=== PATIENT | male | born 1940 | race Caucasian/White ===

== ENCOUNTER 2025-05-16 15:09 | Emergency (ER) | payer MEDICARE, SELFPAY ==
--- OUTSIDE RECORDS SUMMARY | 2025-04-07 07:29 | XMS_ITS | Continuity of Care Document ---
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 Name Role Phone SUNITHA GUZMAN Primary Attending SUNITHA GUZMAN Unavailable SUNITHA GUZMAN Admitting TOO CHILD Primary Care ALLERGIES AND ADVERSE REACTIONS ALLERGIES AND ADVERSE REACTIONS Code System Allergy Substance Adverse Reaction Date Reaction (Severity) Comment Status Reported By Updated By 1197 RXNorm ASPIRIN Adverse reaction to substance (Moderate) has had ulcers active [id number] on April 03, 2025 12:10:06 PM UT ASSESSMENTS Chronic obstructive pulmonary disease ; FAMILY HISTORY RELATION: Father Status: Cause of : Coronary arteriosclerosis Age at : 70 SNOMED-CT Diagnosis Age At Onset Information not available RELATION: Mother Status: Cause of : Disorder of lung Age at : 96 SNOMED-CT Diagnosis Age At Onset [id number] Disorder of lung PROBLEMS PATIENT PROBLEMS Code Description/Comments Category Status Upda w[place] By [id number] Chronic obstructive pulmonary disease active [id number] on April 03, 2025 3:17:34 AM UT RESULTS Patient: TRISTIAN Barraza Date of : 1940 LABORATORY RESULTS ORDER 100: B-TYPE NATRIURETI C PEPTIDE BNP (LOINC: 96776-9) ORDER DATE: April 03, 2025 12:58:00 AM UTC Specimen Source: Whole Blood Specimen Type: Whole blood s ample PERFORMING LAB: [address] [id number] Result Comment: Final Result Date: April 03, 2025 1:46:00 AM UT (TECH: HC) LOINC TEST FLAG [place] [address]-5 Natriuretic peptide B [Mass/volume] in Serum or Plasma H 139.0 pg/mL 0.0 pg/mL - 100 pg/mL April 03, 2025 1:46:00 AM UTC (TECH: [employer]) ORDER 200: CBC AUTO W DIFF ( LOINC: 83185-8) ORDER DATE: April 03, 2025 12:58:00 AM UTC Specimen Source: Whole Blood Specimen Type: Whole blood s ample PERFORMING LAB: [address] [id number] Result Comment: Final Result Date: April 03, 2025 1:22:00 AM UTC (TECH: [employer]) LOINC TEST FLAG RESULT REFERENCE RANGE UPDA WESLEY BY 6690-2 Leukocytes [#/volume] in Blood by Automated count N 5.7 10^3/uL 4.5 10^3/uL - 11.5 10^3/uL April 03, 2025 1:22:00 AM UTC (TECH: [employer]) 789-8 Erythrocytes [#/volume] in Blood by Automated count L 4.06 10^6/uL 4.25 10^6/uL - 5.57 10^6/uL April 03, 2025 1:22:00 AM UTC (1spire: [employer]) 718-7 Hemoglobin [Mass/volume] in Blood L 12.6 g/dL 13.5 g/dL - 17.2 g/dL April 03, 2025 1:22:00 AM UTC (1spire: [employer]) 50081-1 Hematocrit [Volume Fraction] of Blood L 38.4 % 42.0 % - 52.0 % April 03, 2025 1:22:00 AM UTC (TECH: [employer]) 787-2 Erythrocyte mean corpuscular volume [Entitic volume] by Automated count N 94.6 fl 80 fl - 95 fl April 03, 2025 1:22:00 AM UTC (1spire: [employer]) 83939-2 Erythrocyte mean corpuscular hemoglobin [Entitic mass] in Blood from Fetus by Automated count N 31.0 pg 27.0 pg - 34.0 pg April 03, 2025 1:22:00 AM UTC (1spire: [employer]) 62835-1 Erythrocyte mean corpuscular hemoglobin concentration [Mass/volume] in Blood from Fetus by Automated count N 32.8 g/dL 32.0 g/dL - 36.0 g/dL April 03, 2025 1:22:00 AM UTC (TECH: [employer]) 76952-7 Platelets [#/volume] in Blood N 275 10^3/uL 150 10^3/uL - 450 10^3/uL April 03, 2025 1:22:00 AM UTC (TECH: [employer]) 31848-3 Erythrocyte distribution width [Ratio] H 16.1 % 12.3 % - 15.1 % April 03, 2025 1:22:00 AM UTC (TECH: HC) 95660-2 Platelet mean volume [Entitic volume] in Blood by Automated count N 9.9 fl 7.4 fl - 10.4 fl April 03, 2025 1:22:00 AM UTC (TECH: HC) 60900-8 Granulocytes/100 leukocytes in Blood by Automated count N 68.0 % 40 % - 75 % April 03, 2025 1:22:00 AM UTC (TECH: HC) 736-9 Lymphocytes/100 leukocytes in Blood by Automated count N 15.3 % 15 % - 57 % April 03, 2025 1:22:00 AM UTC (TECH: HC) 5905-5 Monocytes/100 leukocytes in Blood by Automated count H 13.3 % 4.0 % - 12.0 % April 03, 2025 1:22:00 AM UTC (TECH: HC) 713-8 Eosinophils/100 leukocytes in Blood by Automated count N 2.6 % 0.0 % - 4.0 % April 03, 2025 1:22:00 AM UTC (TECH: HC) 706-2 Basophils/100 leukocytes in Blood by Automated count N 0.4 % 0.0 % - 1.0 % April 03, 2025 1:22:00 AM UTC (TECH: [employer]) 61680-0 Immature granulocytes [#/volume] in Blood N 0.4 % 0.0 % - 0.8 % April 03, 2025 1:22:00 AM UTC (TECH: HC) 21185-2 Granulocytes [#/volume] in Blood by Automated count N 3.88 10^3/uL April 03, 2025 1:22:00 AM UTC (TECH: HC) 731-0 Lymphocytes [#/volume] in Blood by Automated count N 0.87 10^3/uL April 03, 2025 1:22:00 AM UTC (TECH: HC) 742-7 Monocytes [#/volume] in Blood by Automated count N 0.76 10^3/uL April 03, 2025 1:22:00 AM [facility] (1spire: [employer]) 711-2 Eosinophils [#/volume] in Blood by Automated count N 0.15 10^3/uL April 03, 2025 1:22:00 AM [facility] ([facility]: [employer]) 704-7 Basophils [#/volume] in Blood by Automated count N 0.02 10^3/uL April 03, 2025 1:22:00 AM [facility] ([facility]spire: [employer]) 95671-3 Immature granulocytes [#/volume] in Blood N 0.02 10^3/uL April 03, 2025 1:22:00 AM [facility] ([facility]sp[facility]: [employer]) 82776-2 Manual differential performed [Presence] in Blood N NO April 03, 2025 1:22:00 AM [facility] ([facility]sp[facility]: [employer]) ORDER 300: CK MB (LOINC: 326 73-6) ORDER DATE: April 03, 2025 12:58:00 AM [facility] Specimen Source: Serum/Plasm a Specimen Type: Acellular blo od (serum or plasma) specimen PERFORMING LAB: [address] [id number] Result Comment: Final Result Date: April 03, 2025 1:48:00 AM [facility] ([facility]spire: [employer]) LOINC TEST FLAG RESULT [place] [address]-7 Creatine kinase.MB [Enzymatic activity/volume] in Serum or Plasma N 0.5 ng/mL 0.0 ng/mL - 3.6 ng/mL April 03, 2025 1:48:00 AM [facility] ([facility]: [employer]) ORDER 400: D-DIMER QUANTITAT SHILOH (LOINC: 7799-0) ORDER DATE: April 03, 2025 12:58:00 AM [facility] Specimen Source: Plasma Specimen Type: Plasma specim en PERFORMING LAB: [address] [id number] Result Comment: Final Result Date: April 03, 2025 1:51:00 AM [facility] ([facility]sp[facility]: [employer]) LOINC TEST FLAG RESULT REFERENCE RANGE UPDA WESLEY BY 7799-0 Fibrin D-dimer [Units/volume] in Platelet poor plasma HH 1956 ng/mL 0 ng/mL - 500 ng/mL April 03, 2025 1:51:00 AM UT (TECH: [employer]) ORDER 500: TROPONIN QUANT (L OINC: 05097-0) ORDER DATE: April 03, 2025 12:58:00 AM UT Specimen Source: Serum/Plasm a Specimen Type: Acellular blo od (serum or plasma) specimen PERFORMING LAB: [address] [id number] Result Comment: Final Result Date: April 03, 2025 1:46:00 AM UT (TECH: [employer]) LOINC TEST FLAG RESULT [place] [address]-9 Troponin I.cardiac panel - Serum or Plasma by High sensitivity method N 6 ng/L 0 ng/L - 76 ng/L April 03, 2025 1:46:00 AM UT (TECH: [employer]) ORDER 800: COMP METABOLIC PA MARLENY (LOINC: 08841-1) ORDER DATE: April 03, 2025 1:55:00 AM UT Specimen Source: Serum/Plasm a Specimen Type: Acellular blo od (serum or plasma) specimen PERFORMING LAB: [address] [id number] Result Comment: Final Result Date: April 03, 2025 2:09:00 AM [facility] ([facility]: [employer]) LOINC TEST FLAG RESULT REFERENCE RANGE UPDA WESLEY BY 2951-2 Sodium [Moles/volume ] in Serum or Plasma L 135 mmol/L 136 mmol/L - 145 mmol/L April 03, 2025 2:09:00 AM [facility] ([facility]: [employer]) 2823-3 Potassium [Moles/volume] in Serum or Plasma N 3.7 mmol/L 3.5 mmol/L - 5.1 mmol/L April 03, 2025 2:09:00 AM UT ([facility]spire: [employer]) 2075-0 Chloride [Moles/volu me] in Serum or Plasma N 98 mmol/L 98 mmol/L - 107 mmol/L April 03, 2025 2:09:00 AM UT (1spire: [employer]) 2027-9 Carbon dioxide, tota l [Moles/volume] in Serum or Plasma N 25 mmol/L 21 mmol/L - 32 mmol/L April 03, 2025 2:09:00 AM UT (TECH: [employer]) 32690-8 Anion gap 3 in Serum or Plasma N 12.0 April 03, 2025 2:09:00 AM UT (TECH: [employer]) 2345-7 Glucose [Mass/volume ] in Serum or Plasma N 98 mg/dL 70 mg/dL - 110 mg/dL April 03, 2025 2:09:00 AM [facility] (TECH: [employer]) 3094-0 Urea nitrogen [Mass/volume] in Serum or Plasma N 15 mg/dL 7 mg/dL - 18 mg/dL April 03, 2025 2:09:00 AM [facility] (TECH: ) 2160-0 Creatinine [Mass/volume] in Serum or Plasma N 1.3 mg/dL 0.8 mg/dL - 1.3 mg/dL April 03, 2025 2:09:00 AM [facility] (TECH: ) 3097-3 Urea nitrogen/Creatinine [Mass Ratio] in Serum or Plasma N 11.5 9 - April 03, 2025 2:09:00 AM [facility] ([facility]sp[facility]: [employer]) 06541-5 Glomerular filtratio n rate/1.73 sq M.predicted by Creatinine-based formula (MDRD) L 54 mL/min >60 April 03, 2025 2:09:00 AM [facility] (TECH: [employer]) 91112-3 Osmolality of Serum or Plasma by calculated by sum of electrolytes N 282 mosm/kg 275 mosm/kg - 301 mosm/kg April 03, 2025 2:09:00 AM [facility] ([facility]: [employer]) 2885-2 Protein [Mass/volume ] in Serum or Plasma N 8.1 g/dL 6.4 g/dL - 8.2 g/dL April 03, 2025 2:09:00 AM [facility] (TECH: [employer]) 1751-7 Albumin [Mass/volume ] in Serum or Plasma L 3.3 g/dL 3.4 g/dL - 5.0 g/dL April 03, 2025 2:09:00 AM [facility] (TECH: [employer]) 68714-8 Calcium [Mass/volume ] in Serum or Plasma N 9.1 mg/dL 8.5 mg/dL - 10.1 mg/dL April 03, 2025 2:09:00 AM [facility] ([facility]sp[facility]: [employer]) 39883-0 Calcium [Mass/volume ] corrected for total protein in Serum or Plasma N 9.7 mg/dL 8.5 mg/dL - 10.1 mg/dL April 03, 2025 2:09:00 AM [facility] (TECH: [employer]) 1975-2 Bilirubin.total [Mass/volume] in Serum or Plasma N 0.5 mg/dL 0.4 mg/dL - 1.5 mg/dL April 03, 2025 2:09:00 AM UTC (TECH: [employer]) 1920-8 Aspartate aminotransferase [Enzymatic activity/volume] in Serum or Plasma N 36 U/L 15 U/L - 37 U/L April 03, 2025 2:09:00 AM UTC (TECH: [employer]) 1742-6 Alanine aminotransferase [Enzymatic activity/volume] in Serum or Plasma N 13 U/L 12 U/L - 78 U/L April 03, 2025 2:09:00 AM UTC (TECH: [employer]) 6768-6 Alkaline phosphatase [Enzymatic activity/volume] in Serum or Plasma N 134 U/L April 03, 2025 2:09:00 AM UT (TECH: [employer]) ORDER 1000: UA AND MICRO/CUL T IF INDICATED (LOINC: 80338-5) ORDER DATE: April 03, 2025 2:02:00 AM UT Specimen Source: URINE Specimen Type: Urine specime n PERFORMING LAB: [address] [id number] Result Comment: Final Result Date: April 03, 2025 2:13:00 AM UT (TECH: [employer]) LOINC TEST FLAG RESULT REFERENCE RANGE UPDA WESLEY BY 5778-6 Color of Urine N yellow YELLOW March 192024 2:13:00 AM UT (TECH: [employer]) 5767-9 Appearance of Urine N clear CLEAR April 03, 2025 2:13:00 AM UT (TECH: [employer]) 5792-7 Glucose [Mass/volume] in Urine by Test strip N NORM NORMAL April 03, 2025 2:13:00 AM UT (TECH: [employer]) 46295-6 Bilirubin.total [Mass/volume] in Urine by Automated test strip N NEGATIVE NEGATIVE April 03, 2025 2:13:00 AM UT (TECH: [employer]) 5797-6 Ketones [Mass/volume] in Urine by Test strip N NEGATIVE NEGATIVE April 03, 2025 2:13:00 AM UT (TECH: [employer]) 2965-2 Specific gravity of Urine N 1.005 1.005 - 1.035 April 03, 2025 2:13:00 AM UTC (TECH: [employer]) 15963-6 Erythrocytes [#/volume] in Urine by Automated test strip N NEGATIVE NEGATIVE April 03, 2025 2:13:00 AM UTC (TECH: HC) 01847-5 pH of Urine by Automated test strip N 5.00 5.0 - 7.5 April 03, 2025 2:13:00 AM UTC (TECH: HC) 14496-9 Protein [Presence] in Urine by Test strip N 15 (TRACE) mg/dL NEGATIVE April 03, 2025 2:13:00 AM UTC (TECH: HC) 53532-7 Urobilinogen [Mass/volume] in Urine by Automated test strip N NORM NORMAL April 03, 2025 2:13:00 AM UTC (TECH: HC) 95572-5 Nitrate [Presence] in Urine N NEGATIVE NEGATIVE April 03, 2025 2:13:00 AM UTC (TECH: HC) 26534-1 Leukocytes [#/volume] in Urine by Test strip N TRACE (25) /mcL NEGATIVE April 03, 2025 2:13:00 AM UTC (TECH: HC) 26142-2 Other elements in Urine sediment N NOT REQUIRED April 03, 2025 2:13:00 AM UTC (TECH: HC) 33703-4 Microscopic observation [Identifier] in Urine sediment by Light microscopy N NO April 03, 2025 2:13:00 AM UTC (TECH: HC) ORDER 1800: CBC AUTO W DIFF (LOINC: 81909-0) ORDER DATE: April 03, 2025 3:20:00 AM UTC Specimen Source: Whole Blood Specimen Type: Whole blood s ample PERFORMING LAB: [address] [id number] Result Comment: Final Result Date: April 03, 2025 10:19:00 AM UTC (TECH: LT) LOINC TEST FLAG RESULT REFERENCE RANGE UPDA WESLEY BY 6690-2 Leukocytes [#/volume] in Blood by Automated count L 4.0 10^3/uL 4.5 10^3/uL - 11.5 10^3/uL April 03, 2025 10:19:00 AM UTC (TECH: LT) 789-8 Erythrocytes [#/volume] in Blood by Automated count L 3.71 10^6/uL 4.25 10^6/uL - 5.57 10^6/uL April 03, 2025 10:19:00 AM UTC (TECH: LT) 718-7 Hemoglobin [Mass/volume] in Blood L 11.6 g/dL 13.5 g/dL - 17.2 g/dL April 03, 2025 10:19:00 AM UTC (TECH: LT) 75968-6 Hematocrit [Volume Fraction] of Blood L 35.2 % 42.0 % - 52.0 % April 03, 2025 10:19:00 AM UTC (TECH: LT) 787-2 Erythrocyte mean corpuscular volume [Entitic volume] by Automated count N 94.9 fl 80 fl - 95 fl April 03, 2025 10:19:00 AM UTC (TECH: LT) 92913-8 Erythrocyte mean corpuscular hemoglobin [Entitic mass] in Blood from Fetus by Automated count N 31.3 pg 27.0 pg - 34.0 pg April 03, 2025 10:19:00 AM UTC (TECH: LT) 32948-5 Erythrocyte mean corpuscular hemoglobin concentration [Mass/volume] in Blood from Fetus by Automated count N 33.0 g/dL 32.0 g/dL - 36.0 g/dL April 03, 2025 10:19:00 AM UTC (TECH: LT) 35659-5 Platelets [#/volume] in Blood N 267 10^3/uL 150 10^3/uL - 450 10^3/uL April 03, 2025 10:19:00 AM UTC (TECH: LT) 94797-1 Erythrocyte distribution width [Ratio] H 16.1 % 12.3 % - 15.1 % April 03, 2025 10:19:00 AM UTC (TECH: LT) 86017-9 Platelet mean volume [Entitic volume] in Blood by Automated count N 10.3 fl 7.4 fl - 10.4 fl April 03, 2025 10:19:00 AM UTC (TECH: LT) 02962-0 Granulocytes/100 leukocytes in Blood by Automated count H 92.6 % 40 % - 75 % April 03, 2025 10:19:00 AM UTC (TECH: LT) 736-9 Lymphocytes/100 leukocytes in Blood by Automated count L 5.2 % 15 % - 57 % April 03, 2025 10:19:00 AM UTC (TECH: LT) 5905-5 Monocytes/100 leukocytes in Blood by Automated count L 1.5 % 4.0 % - 12.0 % April 03, 2025 10:19:00 AM UTC (TECH: LT) 713-8 Eosinophils/100 leukocytes in Blood by Automated count N 0.0 % 0.0 % - 4.0 % April 03, 2025 10:19:00 AM UTC (TECH: LT) 706-2 Basophils/100 leukocytes in Blood by Automated count N 0.2 % 0.0 % - 1.0 % April 03, 2025 10:19:00 AM UTC (TECH: LT) 31801-9 Immature granulocytes [#/volume] in Blood N 0.5 % 0.0 % - 0.8 % April 03, 2025 10:19:00 AM UTC (TECH: LT) 00640-6 Granulocytes [#/volume] in Blood by Automated count N 3.71 10^3/uL April 03, 2025 10:19:00 AM UTC (TECH: LT) 731-0 Lymphocytes [#/volume] in Blood by Automated count N 0.21 10^3/uL April 03, 2025 10:19:00 AM UTC (TECH: LT) 742-7 Monocytes [#/volume] in Blood by Automated count N 0.06 10^3/uL April 03, 2025 10:19:00 AM UTC (TECH: LT) 711-2 Eosinophils [#/volume] in Blood by Automated count N 0.00 10^3/uL April 03, 2025 10:19:00 AM UTC (TECH: LT) 704-7 Basophils [#/volume] in Blood by Automated count N 0.01 10^3/uL April 03, 2025 10:19:00 AM UTC (TECH: LT) 76956-8 Immature granulocytes [#/volume] in Blood N 0.02 10^3/uL April 03, 2025 10:19:00 AM UTC (TECH: LT) 47263-8 Manual differential performed [Presence] in Blood N NO April 03, 2025 10:19:00 AM UTC (TECH: LT) ORDER 1900: COMP METABOLIC P ADRIEL (LOINC: 62924-9) ORDER DATE: April 03, 2025 3:20:00 AM UT Specimen Source: Serum/Plasm a Specimen Type: Acellular blo od (serum or plasma) specimen PERFORMING LAB: [address] [id number] Result Comment: Final Result Date: April 03, 2025 11:03:00 AM [facility] (TECH: LT) LOINC TEST FLAG RESULT REFERENCE RANGE UPDA WESLEY BY 2951-2 Sodium [Moles/volume ] in Serum or Plasma N 138 mmol/L 136 mmol/L - 145 mmol/L April 03, 2025 11:03:00 AM UT (TECH: LT) 2823-3 Potassium [Moles/volume] in Serum or Plasma N 4.5 mmol/L 3.5 mmol/L - 5.1 mmol/L April 03, 2025 11:03:00 AM [facility] (TECH: LT) 2075-0 Chloride [Moles/volume] in Serum or Plasma N 102 mmol/L 98 mmol/L - 107 mmol/L April 03, 2025 11:03:00 AM UT (TECH: LT) 8-9 Carbon dioxide, tota l [Moles/volume] in Serum or Plasma N 28 mmol/L 21 mmol/L - 32 mmol/L April 03, 2025 11:03:00 AM [facility] (TECH: LT) 30108-0 Anion gap 3 in Serum or Plasma N 8.0 April 03, 2025 11:03:00 AM [facility] (TECH: LT) 2345-7 Glucose [Mass/volume ] in Serum or Plasma H 217 mg/dL 70 mg/dL - 110 mg/dL April 03, 2025 11:03:00 AM [facility] (TECH: LT) 3094-0 Urea nitrogen [Mass/volume] in Serum or Plasma N 18 mg/dL 7 mg/dL - 18 mg/dL April 03, 2025 11:03:00 AM UT (TECH: LT) 2160-0 Creatinine [Mass/volume] in Serum or Plasma H 1.4 mg/dL 0.8 mg/dL - 1.3 mg/dL April 03, 2025 11:03:00 AM [facility] (TECH: LT) 3097-3 Urea nitrogen/Creatinine [Mass Ratio] in Serum or Plasma N 12.9 9 - 21 April 03, 2025 11:03:00 AM [facility] (TECH: LT) 28829-8 Glomerular filtratio n rate/1.73 sq M.predicted by Creatinine-based formula (MDRD) L 49 mL/min >60 April 03, 2025 11:03:00 AM [facility] (TECH: LT) 39582-0 Osmolality of Serum or Plasma by calculated by sum of electrolytes N 296 mosm/kg 275 mosm/kg - 301 mosm/kg April 03, 2025 11:03:00 AM [facility] (TECH: LT) 2885-2 Protein [Mass/volume ] in Serum or Plasma N 7.8 g/dL 6.4 g/dL - 8.2 g/dL April 03, 2025 11:03:00 AM [facility] (TECH: LT) 1751-7 Albumin [Mass/volume ] in Serum or Plasma L 3.0 g/dL 3.4 g/dL - 5.0 g/dL April 03, 2025 11:03:00 AM [facility] (TECH: LT) 38526-9 Calcium [Mass/volume ] in Serum or Plasma N 9.4 mg/dL 8.5 mg/dL - 10.1 mg/dL April 03, 2025 11:03:00 AM [facility] (TECH: LT) 24534-5 Calcium [Mass/volume ] corrected for total protein in Serum or Plasma H 10.2 mg/dL 8.5 mg/dL - 10.1 mg/dL April 03, 2025 11:03:00 AM [facility] (TECH: LT) 1975-2 Bilirubin.total [Mass/volume] in Serum or Plasma N 0.4 mg/dL 0.4 mg/dL - 1.5 mg/dL April 03, 2025 11:03:00 AM [facility] (TECH: LT) 1920-8 Aspartate aminotransferase [Enzymatic activity/volume] in Serum or Plasma N 36 U/L 15 U/L - 37 U/L April 03, 2025 11:03:00 AM [facility] (TECH: LT) 1742-6 Alanine aminotransferase [Enzymatic activity/volume] in Serum or Plasma L 10 U/L 12 U/L - 78 U/L April 03, 2025 11:03:00 AM [facility] (TECH: LT) 6768-6 Alkaline phosphatase [Enzymatic activity/volume] in Serum or Plasma N 128 U/L April 03, 2025 11:03:00 AM UT (TECH: LT) ORDER 2000: B-TYPE NATRIURET IC PEPTIDE BNP (LOINC: 61185-4) ORDER DATE: April 03, 2025 3:20:00 AM UTC Specimen Source: Whole Blood Specimen Type: Whole blood s ample PERFORMING LAB: [address] [id number] Result Comment: Final Result Date: April 03, 2025 10:52:00 AM UTC (TECH: LT) LOINC TEST FLAG RESULT [place] [address]-7 Natriuretic peptide B [Mass/volume] in Serum or Plasma H 120.0 pg/mL 0.0 pg/mL - 100 pg/mL April 03, 2025 10:52:00 AM UTC (TECH: LT) ORDER 2100: MAGNESIUM (LOINC : 42585-7) ORDER DATE: April 03, 2025 3:20:00 AM UTC Specimen Source: Serum/Plasm a Specimen Type: Acellular blo od (serum or plasma) specimen PERFORMING LAB: [address] [id number] Result Comment: Final Result Date: April 03, 2025 11:03:00 AM UT (TECH: LT) LOINC TEST FLAG RESULT [place] [address]-5 Magnesium [Mass/volume] in Serum or Plasma N 1.8 mg/dL 1.8 mg/dL - 2.4 mg/dL April 03 11:03:00 AM UT (TECH: LT) LABORATORY NARRATIVE RESULTS Information is not available RADIOLOGY RESULTS ORDER 700: CHEST SINGLE VIEW /PORTABLE (LOINC: 03310-1) ORDER DATE: April 03, 2025 12:59:00 AM UTC PERFORMING LAB: [address] [id number] Final Result Date: April 03 2:04:[address] [place] [address] Name: SANJAY LUBIN Exam Date: 04/02/2025 : 1940 Age 84 years Gender: M Physician: Facility: [facility] Facility HSV: Outpatient Exam: CHEST SINGLE VIEW/PORTABLE FINAL REPORT TECHNIQUE: null CLINICAL HISTORY: soa x 1980s worse tonight / hx copd / hx pneumothorax / hx NM in 80s / former smoker x40 years COMPARISON: null FINDINGS: Chest X-ray, 1 View COMPARISON: CR - CHEST PORTABLE - 05/04/18 22:00 EDT FINDINGS: No consolidation. Calcified right mid to lower lung granuloma. Mild bibasilar atelectasis. Pulmonary hyperinflation suggestive of COPD. No pleural effusion. No pneumothorax. Mild cardiomegaly. No acute fracture. IMPRESSION: IMPRESSION: No acute findings. Nonemergent/incidental findings above. Authenticated and [facility] Dictated By: Terence Hensley Transcribed By: Transcribed On: 04/02/2025 10:04 PM Electronically signed by: Terence Hensley 04/02/2025 Thank you for referring SANJAY LUBIN to [facility]. Legally authenticated by ELLIE EDGAR 2025-04-02 22:04:15 ORDER 900: CT CHEST PE ASHLEIGH COL (LOINC: 80328-2) ORDER DATE: April 03, 2025 1:55:00 AM [facility] PERFORMING LAB: [address] [id number] Final Result Date: April 03 3:16:[address] [place] [address] Name: SANJAY LUBIN Exam Date: 04/02/2025 : 1940 Age 84 years Gender: M Physician: ROBEL WHATLEY Facility: [facility] Facility HSV: Outpatient Exam: CT CHEST PE PROTOCOL FINAL REPORT TECHNIQUE: null CLINICAL HISTORY: Elevated D-Dimer / soa x worse tonight / hx copd / hx pneumothorax / hx NM in 80s / former smoker x40 years COMPARISON: null FINDINGS: CT Angiography Chest W Contrast 3D Postprocessing COMPARISON: CR - CHEST SINGLE VIEW/PORTABLE - 04/02/25 20:57 EDT FINDINGS: No pulmonary embolism. No thoracic aortic aneurysm or dissection. No consolidation. No mass. Scarring at the lung apices. Centrilobular and paraseptal emphysematous changes. Calcified right middle lobe granuloma. Nodule in the right middle lobe measuring 4 mm (series 4, image 40). No pleural effusion. No pneumothorax. Mild cardiomegaly. No pericardial effusion. No pathologically enlarged lymph nodes. No acute fracture. Degenerative changes in the spine. Small hiatal hernia. Heterogeneous mass in the right hepatic lobe measuring 6.0 x 4.5 cm (series 3, image 73). IMPRESSION: IMPRESSION: No acute findings. No pulmonary embolism. Right middle lobe pulmonary nodule. No imaging follow-up recommended for low-risk patients. Consider 12 month follow-up CT for high-risk patients per Fleischner Society guidelines. Indeterminate liver mass. Malignancy cannot be excluded. Consider nonemergent liver MRI or CT if not worked up in the past. Nonemergent/incidental findings above. Authenticated and [facility] Dictated By: Terence Hensley Transcribed By: Transcribed On: 04/02/2025 11:01 PM Electronically signed by: Terence Hensley 04/02/2025 Thank you for referring SANJAY LUBIN to [facility]. Legally authenticated by ELLIE EDGAR 2025-04-02 23:01:[address] [place] [id number] Name: SANJAY LUBIN Exam Date: 04/02/2025 : 1940 Age 84 years Gender: M Physician: ROBEL WHATLEY Facility: [facility] Facility HSV: Outpatient Exam: CT CHEST PE PROTOCOL FINAL REPORT TECHNIQUE: null CLINICAL HISTORY: Elevated D-Dimer / soa x 1980s worse tonight / hx copd / hx pneumothorax / hx NM in 80s / former smoker x40 years COMPARISON: null FINDINGS: CT Angiography Chest W Contrast 3D Postprocessing COMPARISON: CR - CHEST SINGLE VIEW/PORTABLE - 04/02/25 20:57 EDT FINDINGS: No pulmonary embolism. No thoracic aortic aneurysm or dissection. No consolidation. No mass. Scarring at the lung apices. Centrilobular and paraseptal emphysematous changes. Calcified right middle lobe granuloma. Nodule in the right middle lobe measuring 4 mm (series 4, image 40). No pleural effusion. No pneumothorax. Mild cardiomegaly. No pericardial effusion. No pathologically enlarged lymph nodes. No acute fracture. Degenerative changes in the spine. Small hiatal hernia. Heterogeneous mass in the right hepatic lobe measuring 6.0 x 4.5 cm (series 3, image 73). IMPRESSION: IMPRESSION: No acute findings. No pulmonary embolism. Right middle lobe pulmonary nodule. No imaging follow-up recommended for low-risk patients. Consider 12 month follow-up CT for high-risk patients per Fleischner Society guidelines. Indeterminate liver mass. Malignancy cannot be excluded. Consider nonemergent liver MRI or CT if not worked up in the past. Nonemergent/incidental findings above. Authenticated and [facility] Dictated By: Terence Hensley Transcribed By: Transcribed On: 04/02/2025 11:01 PM Electronically signed by: Terence Hensley 04/02/2025 Addendum 1 ADDENDUM REPORT ADDENDUM 1: Receipt of this report by the clinical staff was confirmed with Dr. Whatley on April 02, 2025 23:16:00 EDT. Legally authenticated by ELLIE EDGAR 2025-04-02 23:16:25 Critical findings reported to Dr. Whatley on 04/02/2025 23:16 Authenticated by Terence Hensley MD on 2025-04-02 23:16:25 [facility] FINAL REPORT TECHNIQUE: null CLINICAL HISTORY: Elevated D-Dimer / soa x 1980s worse tonight / hx copd / hx pneumothorax / hx NM in 80s / former smoker x40 years COMPARISON: null FINDINGS: CT Angiography Chest W Contrast 3D Postprocessing COMPARISON: CR - CHEST SINGLE VIEW/PORTABLE - 04/02/25 20:57 EDT FINDINGS: No pulmonary embolism. No thoracic aortic aneurysm or dissection. No consolidation. No mass. Scarring at the lung apices. Centrilobular and paraseptal emphysematous changes. Calcified right middle lobe granuloma. Nodule in the right middle lobe measuring 4 mm (series 4, image 40). No pleural effusion. No pneumothorax. Mild cardiomegaly. No pericardial effusion. No pathologically enlarged lymph nodes. No acute fracture. Degenerative changes in the spine. Small hiatal hernia. Heterogeneous mass in the right hepatic lobe measuring 6.0 x 4.5 cm (series 3, image 73). IMPRESSION: IMPRESSION: No acute findings. No pulmonary embolism. Right middle lobe pulmonary nodule. No imaging follow-up recommended for low-risk patients. Consider 12 month follow-up CT for high-risk patients per Fleischner Society guidelines. Indeterminate liver mass. Malignancy cannot be excluded. Consider nonemergent liver MRI or CT if not worked up in the past. Nonemergent/incidental findings above. Authenticated by Terence Hensley MD on 04/02/2025 11:01:58 pm [facility] Dictated By: Terence Hensley Dictated Date: 04/02/2025 Electronically signed by: Terence Hensley 04/02/2025 Thank you for referring SANJAY LUBIN to [facility]. Legally authenticated by ELLIE EDGAR 2025-04-02 23:16:25 PATHOLOGY NARRATIVE RESULTS Information is not available MICROBIOLOGY RESULTS No Micro Labs/Results Exist for Patient BLOOD ADMIN RESULTS Information is not available TREATMENT PLAN DISCHARGE MEDICATIONS Status RXNORM Medication Dose Route Frequency Dates Comments U pdated By Continued [id number] dexAMETHasone Oral Tablet 2 MG 1 TAB ORAL TWICE A DAY Prescri bed: April 03, 2025 3:25:05 PM [facility] [id number] on April 03, 2025 3:25:05 PM [facility] Continued [id number] Azithromycin Oral Tablet 500 MG 1 TAB ORAL ONCE DAILY Prescri bed: April 03, 2025 3:25:05 PM [facility] [id number] on April 03, 2025 3:25:05 PM [facility] Continued [id number] buPROPion XL (WELLBUTRIN XL) 150 MG ORAL ONCE DAILY Prescri bed: April 03, 2025 3:25:05 PM [facility] [id number] on April 03, 2025 3:25:05 PM [facility] Continued 027936 Omeprazole Oral Capsule Delayed Release 40 MG 1 CAP ORAL ONCE DAILY Prescri bed: April 03, 2025 3:25:05 PM [facility] [id number] on April 03, 2025 3:25:05 PM [facility] Continued 708546 Pravastatin Sodium Oral Tablet 40 MG 1 TAB ORAL AT BEDTIME Prescri bed: April 03, 2025 3:25:05 PM [facility] [id number] on April 03, 2025 3:25:05 PM [facility] Continued 389486 Gabapentin Oral Capsule 300 MG 300 MG ORAL THREE TIMES A DAY Prescri bed: April 03, 2025 3:25:05 PM [place] [id number] on April 03, 2025 3:25:05 PM UT Continued 447647 Gabapentin Oral Tablet 600 MG 600 MG ORAL THREE TIMES A DAY Prescri bed: April 03, 2025 3:25:05 PM [place] [id number] on April 03, 2025 3:25:05 PM UT Continued 773350 Felodipine ER Oral Tablet Extended Release 24 Hour 10 MG 1 TAB ORAL ONCE DAILY Prescri bed: April 03, 2025 3:25:05 PM [facility] [id number] on April 03, 2025 3:25:05 PM UT Continued 839629 budesonide (PULMICORT) 0.5 MG/2ML 0.5 MG INHALED TWICE DAILY (RESPIRATOR Y) Prescri bed: April 03, 2025 3:25:05 PM [facility] [id number] on April 03, 2025 3:25:05 PM UT Continued [id number] DUONEB 0.5-2.5 MG/3 ML 1 NEB INHALED EVERY SIX HOURS (RESPIRATOR Y) Prescri bed: April 03, 2025 3:25:05 PM [facility] [id number] on April 03, 2025 3:25:05 PM [facility] Continued 371159 Fluticasone-Mumtaz meterol Inhalation Aerosol Powder Breath Activated 250-50 MCG/ACT 1 INH INHALED TWICE A DAY Prescri bed: April 03, 2025 3:25:05 PM [facility] [id number] on April 03, 2025 3:25:05 PM UT Continued 104393 FLUoxetine (PROZAC) 20 MG ORAL ONCE DAILY Prescri bed: April 03, 2025 3:25:05 PM [facility] [id number] on April 03, 2025 3:25:05 PM [facility] Continued 021635 ferrous sulfate 325 MG ORAL ONCE DAILY Pre scri bed: April 03, 2025 3:25:05 PM [facility] [id number] on April 03, 2025 3:25:05 PM [facility] Continued 674724 furosemide (LASIX) 20 MG ORAL ONCE DAILY Prescri bed: April 03, 2025 3:25:05 PM [facility] [id number] on April 03, 2025 3:25:05 PM [facility] PATIENT OPEN ORDERS Code System Description Frequency Occurrences Priority Start Date Ordering Physician Updated By Patient open order informati on is not available. SCHEDULED PROCEDURES Code System Description Status Scheduled Date Upd ated By Patient scheduled procedure information is not available. MEDICATIONS HOME MEDICATIONS Status RXNORM NDC Medication Dose Route Frequency Dates Comments Reported By Updated By Active [id number] 47890 50163 5 Pravastatin Sodium Oral Tablet 40 MG 1.0 TAB ORAL BEDTIME Last Dose: EXTPHAR [id number] on April 03, 2025 2:21:45 PM UT Active 163130 99128 82982 1 Felodipine ER Oral Tablet Extended Release 24 Hour 10 MG 1.0 TAB ORAL DAILY Last Dose: EXTPHAR [id number] on April 03, 2025 2:39:21 PM UTC Active 239896 04294 67862 7 Fluticasone- Salmeterol Inhalation Aerosol Powder Breath Activated 250-50 MCG/ACT 1.0 INH INHALED BID Last Dose: EXTPHAR [id number] on April 03, 2025 2:40:18 PM UT Active 173892 47551 14952 1 buPROPion XL (WELLBUTRIN XL) 150.0 MG ORAL DAILY Last Dose: EXTPHAR [id number] on April 03, 2025 2:40:41 PM UTC Active 082775 66309 11487 0 Gabapentin Oral Tablet 600 MG 600.0 MG ORAL TID Last Dose: EXTPHAR [id number] on April 03, 2025 2:43:04 PM UTC Active 738960 98855 13266 0 Gabapentin Oral Capsule 300 MG 300.0 MG ORAL TID Last Dose: EXTPHAR [id number] on April 03, 2025 2:43:41 PM UT Active 461900 97799 11477 1 FLUoxetine (PROZAC) 20.0 MG ORAL DAILY Last Dose: EXTPHAR [id number] on April 03, 2025 2:44:42 PM UTC Active 581634 40328 31776 1 ferrous sulfate 325.0 MG ORAL DAILY Last Dose: EXTPHAR [id number] on April 03, 2025 2:44:58 PM UTC Active 868118 71189 48790 0 Omeprazole Oral Capsule Delayed Release 40 MG 1.0 CAP ORAL DAILY Last Dose: EXTPHAR [id number] on April 03, 2025 2:45:34 PM UTC Active 453198 60142 29713 0 furosemide (LASIX) 20.0 MG ORAL DAILY Last Dose: EXTPHAR [id number] on April 03, 2025 2:46:06 PM UT DISCHARGE MEDICATIONS Status RXNORM [facility] Medication Dose Route Frequency Dates Comments Physician Updated By Continue d 851510 4189 4418 325 dexAMETHaso ne Oral Tablet 2 MG 1.0 TAB ORAL TWICE A DAY Prescr ibed: April 03, 2025 3:25:0 5 PM UT THOMAS [id number] on April 03, 2025 3:25:05 PM UT Continue d 952512 7254 1078 810 Azithromyci n Oral Tablet 500 MG 1.0 TAB ORAL ONCE DAILY Prescr ibed: April 03, 2025 3:25:0 5 PM UT THOMAS Coyle MD [id number] on April 03, 2025 3:25:05 PM UT Continue d 471019 4198 7031 211 buPROPion XL (WELLBUTRIN XL) 150.0 MG ORAL ONCE DAILY Prescr ibed: April 03, 2025 3:25:0 5 PM UT THOMAS [id number] on April 03, 2025 3:25:05 PM UT Continue d 244637 0850 5014 600 Omeprazole Oral Capsule Delayed Release 40 MG 1.0 CAP ORAL ONCE DAILY Prescr ibed: April 03, 2025 3:25:0 5 PM UT THOMAS [id number] on April 03, 2025 3:25:05 PM UT Continue d 357656 0942 1023 105 Pravastatin Sodium Oral Tablet 40 MG 1.0 TAB ORAL AT BEDTIME Prescr ibed: April 03, 2025 3:25:0 5 PM UT THOMAS Coyle MD [id number] on April 03, 2025 3:25:05 PM UTC Continue d 491738 7649 1021 230 Gabapentin Oral Capsule 300 MG 300.0 MG ORAL THREE TIMES A DAY Prescr ibed: April 03, 2025 3:25:0 5 PM UT THOMAS Coyle MD [id number] on April 03, 2025 3:25:05 PM UT Continue d 115300 3025 9095 960 Gabapentin Oral Tablet 600 MG 600.0 MG ORAL THREE TIMES A DAY Prescr ibed: April 03, 2025 3:25:0 5 PM UT THOMAS [id number] on April 03, 2025 3:25:05 PM UTC Continue d 554720 9386 4043 701 Felodipine ER Oral Tablet Extended Release 24 Hour 10 MG 1.0 TAB ORAL ONCE DAILY Prescr ibed: April 03, 2025 3:25:0 5 PM UT THOMAS Coyle MD [id number] on April 03, 2025 3:25:05 PM UTC Continue d 772379 7584 6198 904 budesonide (PULMICORT) 0.5 MG/2ML 0.5 MG INHALE D TWICE DAILY (RESPIRATO RY) Prescr ibed: April 03, 2025 3:25:0 5 PM UT THOMAS Coyle MD [id number] on April 03, 2025 3:25:05 PM UTC Continue d 8099047 7136 7020 101 DUONEB 0.5-2.5 MG/3 ML 1.0 NEB INHALE D EVERY SIX HOURS (RESPIRATO RY) Prescr ibed: April 03, 2025 3:25:0 5 PM UT THOMAS Coyle MD [id number] on April 03, 2025 3:25:05 PM UTC Continue d 947829 6909 3058 597 Fluticasone -Salmeterol Inhalation Aerosol Powder Breath Activated 250-50 MCG/ACT 1.0 INH INHALE D TWICE A DAY Prescr ibed: April 03, 2025 3:25:0 5 PM UT THOMAS Coyle MD [id number] on April 03, 2025 3:25:05 PM UTC Continue d 601991 0662 4578 561 FLUoxetine (PROZAC) 20.0 MG ORAL ONCE DAILY Prescr ibed: April 03, 2025 3:25:0 5 PM UT THOMAS Coyle MD [id number] on April 03, 2025 3:25:05 PM UTC Continue d 011407 3490 5010 801 ferrous sulfate 325.0 MG ORAL ONCE DAILY Prescr ibed: April 03, 2025 3:25:0 5 PM UT THOMAS Coyle MD [id number] on April 03, 2025 3:25:05 PM UTC Continue d 310945 8462 9007 220 furosemide (LASIX) 20.0 MG ORAL ONCE DAILY Prescr ibed: April 03, 2025 3:25:0 5 PM UT THOMAS Coyle MD [id number] on April 03, 2025 3:25:05 PM [facility] INPATIENT MEDICATIONS Status RXNORM [facility] Medication Dose Route Frequency Rat e Quantity Dates Comments Physician Updated By Discont inued 7946635 1283 7020 101 DUONEB 0.5-2.5 MG/3 ML SOLN 1.0 NEB INHALE D ONE TIME ONLY Start: April 03, 2025 1:09:0 0 AM UT End: April 03, 2025 1:09:0 0 AM UT JEREMIE Smith MD INTERFAC ED on April 03, 2025 1:07:00 AM UT Discont inued 1904230 8535 3025 803 METHYLPREDN ISOLONE SODIUM SUCC 125 MG SOLR 125.0 MG INTRAV ENOUS ONE TIME ONLY Start: April 03, 2025 1:19:0 0 AM UT End: April 03, 2025 1:19:0 0 AM UT JEREMIE Smith MD INTERFAC ED on April 03, 2025 1:18:00 AM UT Discont inued 0850930 3573 7020 101 DUONEB 0.5-2.5 MG/3 ML SOLN 1.0 NEB INHALE D EVERY SIX HOURS (RESPIRATO RY) Start: April 03, 2025 5:00:0 0 AM UT End: April 03, 2025 8:15:0 0 PM UT MARLYN Willis PA-C [id number] on April 04, 2025 4:25:00 AM UT Discont inued 8345867 8273 3025 803 METHYLPREDN ISOLONE SODIUM SUCC 125 MG SOLR 80.0 MG INTRAV ENOUS THREE TIMES A DAY Start: April 03, 2025 1:00:0 0 PM UTC End: April 03, 2025 2:02:3 5 PM UT MARLYN Willis PA-C [id number] on April 03, 2025 2:02:00 PM UT Discont inued 794699 4469 6589 588 nicotine TD (NICODERM) 14 MH/24HR PT24 14.0 MG TRANSD ERMAL ONCE DAILY NEEDED Start: April 03, 2025 3:18:0 0 AM UTC End: April 03, 2025 3:25:0 5 PM UTC MARLYN Willis PA-C [id number] on April 04, 2025 4:25:00 AM UTC Discont inued 482782 3436 4677 361 ACETAMINOPH EN 325 MG TABS 650.0 MG ORAL EVERY SIX HOURS NEEDED Start: April 03, 2025 3:18:0 0 AM UTC End: April 03, 2025 3:25:0 5 PM UTC MARLYN Willis PA-C [id number] on April 04, 2025 4:25:00 AM UTC Discont inued 326561 8461 2572 860 famotidine (PEPCID) 20 MG TABS 20.0 MG ORAL TWICE A DAY Start: April 03, 2025 1:00:0 0 PM UTC End: April 03, 2025 3:25:0 5 PM UTC MARLYN Willis PA-C [id number] on April 04, 2025 4:25:00 AM UTC Discont inued 6148517 2583 9475 503 ondansetron (ZOFRAN) 4 MG/2ML SOLN 4.0 MG INTRAV ENOUS EVERY EIGHT HOURS NEEDED Start: April 03, 2025 3:18:0 0 AM UTC End: April 03, 2025 3:25:0 5 PM UTC MARLYN Willis PA-C [id number] on April 04, 2025 4:25:00 AM UTC Discont inued 078473 9588 6024 064 ondansetron (ZOFRAN) 4 MG TBDP 4.0 MG SUBLIN GUAL EVERY EIGHT HOURS NEEDED Start: April 03, 2025 3:18:0 0 AM UTC End: April 03, 2025 3:25:0 5 PM UTC MARLYN Willis PA-C [id number] on April 04, 2025 4:25:00 AM UTC Discont inued 8074026 5735 3028 803 METHYLPREDN ISOLONE SODIUM SUCC 125 MG SOLR 125.0 MG INTRAV ENOUS EVERY SIX HOURS Start: April 03, 2025 3:25:0 5 PM UTC End: April 03, 2025 3:25:0 5 PM UTC THOMAS Coyle MD [id number] on April 04, 2025 4:25:00 AM UTC Discont inued 960920 6599 6198 904 budesonide (PULMICORT) 0.5 MG/2ML SUSP 0.5 MG INHALE D TWICE DAILY (RESPIRATO RY) Start: April 03, 2025 2:01:0 0 PM UTC End: April 03, 2025 8:15:0 0 PM UTC THOMAS Coyle MD [id number] on April 04, 2025 4:25:00 AM UTC Discont inued XXXX XXX0 063 *PATIENT INFORMATION MISC 1.0 EA SEE COMMEN TS NEEDED Start: April 03, 2025 3:32:0 0 PM UTC End: April 03, 2025 8:15:0 0 PM UTC THOMAS Coyle MD [id number] on April 04, 2025 4:25:00 AM UTC SOCIAL HISTORY SOCIAL HISTORY SNOMED-CT Social History Element Description Effective Dates Offered Cessation Comment UpdatedBy [id number] Current Tobacco smoking status Former Smoker [id number] on April 03, 2025 1:10:09 AM UTC SOCIAL HISTORY - Gender Sex: Male SOCIAL HISTORY - Status : status i nformation is not available Intention in Next Year: intention information is not available SOCIAL HISTORY - Sexual Behavior Sexual Orientation Gender Identity SNOMED-CT Description SNO MED -CT Description Activity Level No of Partners Partner Type UpdatedBy Information is not available VITAL SIGNS PATIENT VITAL SIGNS This section displays the mo st recent value for each vital sign as of April 07, 2025 11:29:22 AM UT Loinc Code Vital Sign Activity Date Result Updated By 8302-2 Body height April 03, 2025 5:19:03 AM UTC 177.8 cm (70.0 in) [id number] on April 03, 2025 5:19:[place] [address]-2 Body mass index (BMI ) [Ratio] April 03, 2025 5:19:03 AM UTC 22.997 kg/m2 [id number] on April 03, 2025 5:19:03 AM UT 3140-1 Body Surface Area Derived From Formula April 03, 2025 5:19:03 AM UTC 1.8998 m2 [id number] on April 03, 2025 5:19:03 AM UT 8310-5 Body temperature April 03, 2025 3:00:00 PM UTC 98.4 [degF] [id number] on April 03, 2025 3:31:[place] [address]-1 Body weight Measured April 03 5:19:03 AM UTC 72.7 kg (160.0 lb) [id number] on April 03, 2025 5:19:03 AM UTC 8462-4 Diastolic blood pressure April 03, 2025 3:00:00 PM UTC 71.0 mm[Hg] [id number] on April 03, 2025 3:31:25 PM UTC 8867-4 Heart rate April 03, 2025 5:00:00 PM UTC 87 /min [id number] on April 03, 2025 5:27:[place] [address]-4 Oxygen saturation in Arterial blood by Pulse oximetry April 03, 2025 5:00:00 PM UTC 96.0 % [id number] on April 03, 2025 5:27:41 PM UTC 8506-8 Radial artery Mean blood pressure April 03, 2025 6:59:00 AM UTC 67.0 mm[Hg] [id number] on April 03, 2025 7:00:19 AM UTC 9279-1 Respiratory rate April 03, 2025 5:00:00 PM UTC 18 /min [id number] on April 03, 2025 5:27:[place] [address]-9 Spirometry panel April 03, 2025 11:30:00 AM UTC 10.0 {score} [id number] on April 03, 2025 4:48:45 PM UTC 8480-6 Systolic blood pressure April 03, 2025 3:00:00 PM UTC 159.0 mm[Hg] [id number] on April 03, 2025 3:31:25 PM UT PEDIATRIC GROWTH CHART - VITAL SIGNS This section displays Head C ircumference Percentile, Weight for Length Percentile and BMI Percentile Loinc Code Pediatric Measure Age (Months) Result Updat ed By No Pediatric Growth Chart Pe rcentile Information Available. HEALTH CONCERNS Problems Concern Status Health Concern problem infor mation not available. Smoking Status Status Years Used Consumed packs p er day Health Concern smoking histo ry information not available. Family History Concern Status Health Concern family histor y information not available. ENCOUNTERS ENCOUNTER INFORMATION Reason for Visit COPD Admission April 03, 2025 12:54:[address] [address] Discharge April 03, 2025 8:15:00 PM UT DISC HARGED TO HOME OR SELF CARE ENCOUNTER DIAGNOSES Note Title Short Stay Summary Date Of Service April 03, 2025 3:24:24 PM UT Created By JANIE on April 03 3:24:24 PM UT Signed By JANIE on April 03 3:32:17 PM UT Code System Diagnosis Onset Date [id number] SNOMED-CT Chronic obstructive pulmonar y disease ABSTRACT DIAGNOSES Code System Diagnosis Updated By R06.02 ICD10 SHORTNESS OF BREATH [id number] on April 07, 2025 11:28:59 AM [facility] J44.1 ICD10 CHRONIC OBSTRUCT [place]ILOH PULMONARY DISEASE WITH (ACUTE) EXACERBATION [id number] on April 07, 2025 11:28:59 AM [facility] 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.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 [id number] on April 07, 2025 11:28:59 AM [facility] R79.1 ICD10 ABNORMAL COAGULATION PROFILE [id number] on April 07, 2025 11:28:59 AM [facility] I11.9 ICD10 HYPERTENSIVE HEA RT DISEASE WITHOUT HEART FAILURE [id number] on April 07, 2025 11:28:59 AM [facility] I25.10 ICD10 ATHEROSCLEROTIC HEART DISEASE OF [place] CORONARY ARTERY WITHOUT ANGINA PECTORIS [id number] on April 07, 2025 11:28:59 AM [facility] E11.9 ICD10 TYPE 2 DIABETES MELLITUS WITHOUT COMPLICATIONS [id number] on April 07, 2025 11:28:59 AM [facility] E78.5 ICD10 HYPERLIPIDEMIA, UNSPECIFIED [id number] on April 07, 2025 11:28:59 AM [facility] K21.9 ICD10 GASTRO-ESOPHAGEA L REFLUX DISEASE WITHOUT ESOPHAGITIS [id number] on April 07, 2025 11:28:59 AM [facility] F32.9 ICD10 MAJOR DEPRESSIVE DISORDER, SINGLE EPISODE, UNSPECIFIED [id number] on April 07, 2025 11:28:59 AM [facility] 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 [id number] on April 07, 2025 11:28:59 AM [facility] Z79.899 ICD10 OTHER HALFWAY (CURRENT) DR UG THERAPY [id number] on April 07, 2025 11:28:59 AM [facility] Z87.891 ICD10 PERSONAL HISTORY OF NICOTINE DEPENDENCE [id number] on April 07, 2025 11:28:59 AM [facility] Z86.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), AND CEREBRAL INFARCTION WITHOUT RESIDUAL DEFICITS [id number] on April 07, 2025 11:28:59 AM [facility] Z88.6 ICD10 ALLERGY STATUS TO ANALGESIC AGENT [id number] on April 07, 2025 11:28:59 AM [facility] 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 SUNITHA GUZMAN Primary Attending SUNITHA GUZMAN Referring SUNITHA GUZMAN Admitting TOO CHILD [facility] HOSPITAL DISCHARGE INSTRUCTION DISCHARGE INSTRUCTION Encounter [id number] Admit Date April 03, 2025 12:54:0 0 AM [facility] Discharge Date April 03, 2025 8:15:00 PM [facility] PATIENT EDUCATION SUMMARY Patient/Visit Information: Patient Name: SANJAY LUBIN Diag: Attending Caregiver: TOHMAS Coyle MD Discharge Instruction Sheets Provided: * NATALIIA Stroke && BEFAST Education *[place] Chest Pain *[facility] Patient Portal *NATALIIA Social Determinants of Health *NATALIIA Suicidal Feelings: How to Help Yourself (LPNT) () Chronic Obstructive Pulmonary Disease COPD and Physical Activity Living With COPD Smoking\Tobacco Cessation - [facility] () () Patient Instructions: Additional Notes for * NATALIIA Stroke && BEFAST Education Follow up appointment with primary care doctor. 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 Role on Team Status Start Date End Date Update d By THOMAS Coyle MD Referring normal April 03 3:54:48 AM [facility] April 02, 2025 4:00:00 AM [facility] [id number] on April 03, 2025 3:54:48 AM [facility] THOMAS Coyle MD Attending normal April 03 3:54:48 AM [facility] April 02, 2025 4:00:00 AM [facility] [id number] on April 03, 2025 3:54:48 AM [facility] THOMAS Coyle MD Admitting normal April 03 3:54:48 AM [facility] April 02, 2025 4:00:00 AM [facility] [id number] on April 03, 2025 3:54:48 AM [facility] JEREMIE KIM Referring normal April 03, 2025 1:42:31 AM [facility] April 03, 2025 3:54:48 AM [facility] [id number] on April 03, 2025 3:54:48 AM [facility] JEREMIE KIM Attending normal April 03, 2025 1:42:31 AM UTC April 03, 2025 3:54:48 AM UTC [id number] on April 03, 2025 3:54:48 AM [place] JEREMIE KIM Admitting normal April 03, 2025 1:42:31 AM UTC April 03, 2025 3:54:48 AM UT [id number] on April 03, 2025 3:54:48 AM UT MATEUSZ KIM PCP normal April 03, 2025 12:54:57 AM UTC April 02, 2025 4:00:00 AM UTC [id number] on April 03, 2025 3:54:48 AM UTC
--- OUTSIDE RECORDS SUMMARY | 2025-04-21 06:44 | XMS_ITS | Continuity of Care Document ---
Author Organization [facility] Phone Care Team Providers Care [employer] Name Role Phone BEN GARZA Primary Attending Unavailable BEN GARZA Unavailable Unavailable TOO CHILD Primary Care BEN GARZA Admitting Unavailable ALLERGIES AND ADVERSE REACTIONS ALLERGIES AND ADVERSE REACTIONS Code System Allergy Substance Adverse Reaction Date Reaction (Severity) Comment Status Reported By Updated By 1191 RXNorm ASPIRIN Adverse reaction to substance (Moderate) has had ulcers active [id number] on April 18, 2025 11:11:09 PM UT FAMILY HISTORY RELATION: Father Status: Cause of : Coronary arteriosclerosis Age at : 70 SNOMED-CT Diagnosis Age At Onset Information not available RELATION: Mother Status: Cause of : Disorder of lung Age at : 96 SNOMED-CT Diagnosis Age At Onset [id number] Disorder of lung RESULTS Patient: TRISTIAN Barraza Date of : 1940 LABORATORY RESULTS ORDER 500: CBC AUTO W DIFF ( LOINC: 13777-8) ORDER DATE: April 18, 2025 10:55:00 PM UT Specimen Source: Whole Blood Specimen Type: Whole blood s ample PERFORMING LAB: [address] [id number] Result Comment: Final Result Date: April 18, 2025 11:58:00 PM UT (TECH: RJV) LOINC TEST FLAG RESULT REFERENCE RANGE UPDA WESLEY BY 6690-2 Leukocytes [#/volume] in Blood by Automated count N 7.5 10^3/uL 4.5 10^3/uL - 11.5 10^3/uL April 18, 2025 11:58:00 PM UT (TECH: RJV) 789-8 Erythrocytes [#/volume] in Blood by Automated count L 3.74 10^6/uL 4.25 10^6/uL - 5.57 10^6/uL April 18, 2025 11:58:00 PM UTC (TECH: AfterYes) 718-7 Hemoglobin [Mass/volume] in Blood L 12.0 g/dL 13.5 g/dL - 17.2 g/dL April 18, 2025 11:58:00 PM UTC (TECH: AfterYes) 07146-3 Hematocrit [Volume Fraction] of Blood L 36.1 % 42.0 % - 52.0 % April 18, 2025 11:58:00 PM UTC (TECH: AfterYes) 787-2 Erythrocyte mean corpuscular volume [Entitic volume] by Automated count H 96.5 fl 80 fl - 95 fl April 18, 2025 11:58:00 PM UTC (TECH: AfterYes) 96754-3 Erythrocyte mean corpuscular hemoglobin [Entitic mass] in Blood from [place] by Automated count N 32.1 pg 27.0 pg - 34.0 pg April 18, 2025 11:58:00 PM UTC (TECH: AfterYes) 47797-6 Erythrocyte mean corpuscular hemoglobin concentration [Mass/volume] in Blood from [place]etus by Automated count N 33.2 g/dL 32.0 g/dL - 36.0 g/dL April 18, 2025 11:58:00 PM UTC (TECH: AfterYes) 97183-0 Platelets [#/volume] in Blood N 301 10^3/uL 150 10^3/uL - 450 10^3/uL April 18, 2025 11:58:00 PM UTC (TECH: AfterYes) 47733-9 Erythrocyte distribution width [Ratio] H 15.7 % 12.3 % - 15.1 % April 18, 2025 11:58:00 PM UTC (TECH: AfterYes) 67295-4 Platelet mean volume [Entitic volume] in Blood by Automated count N 9.7 fl 7.4 fl - 10.4 fl April 18, 2025 11:58:00 PM UTC (TECH: AfterYes) 40618-5 Granulocytes/100 leukocytes in Blood by Automated count N 73.2 % 40 % - 75 % April 18, 2025 11:58:00 PM UTC (TECH: AfterYes) 736-9 Lymphocytes/100 leukocytes in Blood by Automated count L 13.4 % 15 % - 57 % April 18, 2025 11:58:00 PM UTC (TECH: RJV) 5905-5 Monocytes/100 leukocytes in Blood by Automated count N 9.4 % 4.0 % - 12.0 % April 18, 2025 11:58:00 PM UTC (TECH: RJV) 713-8 Eosinophils/100 leukocytes in Blood by Automated count N 2.0 % 0.0 % - 4.0 % April 18, 2025 11:58:00 PM UTC (TECH: RJV) 706-2 Basophils/100 leukocytes in Blood by Automated count N 0.8 % 0.0 % - 1.0 % April 18, 2025 11:58:00 PM UTC (TECH: RJV) 51896-7 Immature granulocytes [#/volume] in Blood H 1.2 % 0.0 % - 0.8 % April 18, 2025 11:58:00 PM UTC (TECH: RJV) 40103-0 Granulocytes [#/volume] in Blood by Automated count N 5.47 10^3/uL April 18, 2025 11:58:00 PM UTC (TECH: RJV) 731-0 Lymphocytes [#/volume] in Blood by Automated count N 1.00 10^3/uL April 18, 2025 11:58:00 PM UTC (TECH: RJV) 742-7 Monocytes [#/volume] in Blood by Automated count N 0.70 10^3/uL April 18, 2025 11:58:00 PM UTC (TECH: RJV) 711-2 Eosinophils [#/volume] in Blood by Automated count N 0.15 10^3/uL April 18, 2025 11:58:00 PM UTC (TECH: RJV) 704-7 Basophils [#/volume] in Blood by Automated count N 0.06 10^3/uL April 18, 2025 11:58:00 PM UTC (TECH: [employer]) 95670-9 Immature granulocytes [#/volume] in Blood N 0.09 10^3/uL April 18, 2025 11:58:00 PM UTC (TECH: RJV) 58668-0 Manual differential performed [Presence] in Blood N NO April 18, 2025 11:58:00 PM UTC (TECH: RJV) ORDER 600: COMP METABOLIC PA MARLENY (LOINC: 93615-3) ORDER DATE: April 18, 2025 10:55:00 PM UTC Specimen Source: Serum/Plasm a Specimen Type: Acellular blo od (serum or plasma) specimen PERFORMING LAB: [address] [id number] Result Comment: Final Result Date: April 19, 2025 12:10:00 AM UT (TECH: AfterYes) LOINC TEST FLAG RESULT REFERENCE RANGE UPDA WESLEY BY 2951-2 Sodium [Moles/volume ] in Serum or Plasma N 136 mmol/L 136 mmol/L - 145 mmol/L April 19, 2025 12:10:00 AM UT (TECH: [employer]) 2823-3 Potassium [Moles/volume] in Serum or Plasma N 3.8 mmol/L 3.5 mmol/L - 5.1 mmol/L April 19, 2025 12:10:00 AM UT (TECH: [employer]) 2075-0 Chloride [Moles/volu me] in Serum or Plasma N 101 mmol/L 98 mmol/L - 107 mmol/L April 19, 2025 12:10:00 AM UT (TECH: [employer]) 8-9 Carbon dioxide, tota l [Moles/volume] in Serum or Plasma N 24 mmol/L 21 mmol/L - 32 mmol/L April 19, 2025 12:10:00 AM UT (TECH: [employer]) 75080-9 Anion gap 3 in Serum or Plasma N 11.0 April 19, 2025 12:10:00 AM UT (TECH: [employer]) 2345-7 Glucose [Mass/volume ] in Serum or Plasma N 81 mg/dL 70 mg/dL - 110 mg/dL April 19, 2025 12:10:00 AM UT (TECH: [employer]) 3094-0 Urea nitrogen [Mass/volume] in Serum or Plasma H 29 mg/dL 7 mg/dL - 18 mg/dL April 19, 2025 12:10:00 AM UT (TECH: [employer]) 2160-0 Creatinine [Mass/volume] in Serum or Plasma H 1.5 mg/dL 0.8 mg/dL - 1.3 mg/dL April 19, 2025 12:10:00 AM UT (TECH: [employer]) 3097-3 Urea nitrogen/Creatinine [Mass Ratio] in Serum or Plasma N 19.3 9 - 21 April 19, 2025 12:10:00 AM UT (TECH: AfterYes) 85399-3 Glomerular filtratio n rate/1.73 sq M.predicted by Creatinine-based formula (MDRD) L 45 mL/min >60 April 19, 2025 12:10:00 AM UT (TECH: AfterYes) 35784-1 Osmolality of Serum or Plasma by calculated by sum of electrolytes N 288 mosm/kg 275 mosm/kg - 301 mosm/kg April 19, 2025 12:10:00 AM UT (TECH: AfterYes) 2885-2 Protein [Mass/volume ] in Serum or Plasma N 8.0 g/dL 6.4 g/dL - 8.2 g/dL April 19, 2025 12:10:00 AM [facility] ([employer] [place]: AfterYes) 1751-7 Albumin [Mass/volume ] in Serum or Plasma N 3.6 g/dL 3.4 g/dL - 5.0 g/dL April 19, 2025 12:10:00 AM UT ([employer] [place]: AfterYes) 01143-1 Calcium [Mass/volume ] in Serum or Plasma N 9.3 mg/dL 8.5 mg/dL - 10.1 mg/dL April 19, 2025 12:10:00 AM UT ([employer] [place]: AfterYes) 87907-6 Calcium [Mass/volume ] corrected for total protein in Serum or Plasma N 9.6 mg/dL 8.5 mg/dL - 10.1 mg/dL April 19, 2025 12:10:00 AM [facility] (TECH: AfterYes) 1975-2 Bilirubin.total [Mass/volume] in Serum or Plasma N 0.4 mg/dL 0.4 mg/dL - 1.5 mg/dL April 19, 2025 12:10:00 AM UT (TECH: AfterYes) 1920-8 Aspartate aminotransferase [Enzymatic activity/volume] in Serum or Plasma N 24 U/L 15 U/L - 37 U/L April 19, 2025 12:10:00 AM UT (TECH: AfterYes) 1742-6 Alanine aminotransferase [Enzymatic activity/volume] in Serum or Plasma N 15 U/L 12 U/L - 78 U/L April 19, 2025 12:10:00 AM UT ([employer] [place]: AfterYes) 6768-6 Alkaline phosphatase [Enzymatic activity/volume] in Serum or Plasma N 129 U/L April 19, 2025 12:10:00 AM UT ([employer] [place]: AfterYes) ORDER 700: TROPONIN QUANT (L OINC: 40827-8) ORDER DATE: April 18, 2025 10:55:00 PM UT Specimen Source: Serum/Plasm a Specimen Type: Acellular blo od (serum or plasma) specimen PERFORMING LAB: [place] [id number] Result Comment: Final Result Date: April 19, 2025 12:10:00 AM [facility] (TECH: AfterYes) LOINC TEST FLAG [place] [address]-2 Troponin I.cardiac panel - Serum or Plasma by High sensitivity method N 11 ng/L 0 ng/L - 76 ng/L April 19, 2025 12:10:00 AM [facility] (TECH: AfterYes) ORDER 800: MAGNESIUM (LOINC: 32448-7) ORDER DATE: April 18, 2025 10:55:00 PM UT Specimen Source: Serum/Plasm a Specimen Type: Acellular blo od (serum or plasma) specimen PERFORMING LAB: [address] [id number] Result Comment: Final Result Date: April 19, 2025 12:10:00 AM [facility] (TECH: AfterYes) LOINC TEST FLAG [place] [address]-7 Magnesium [Mass/volume] in Serum or Plasma N 1.9 mg/dL 1.8 mg/dL - 2.4 mg/dL April 19, 2025 12:10:00 AM UT (TECH: AfterYes) ORDER 1000: ALCOHOL QUANT (L OINC: 5645-7) ORDER DATE: April 18, 2025 10:58:00 PM UT Specimen Source: Serum/Plasm a Specimen Type: Acellular blo od (serum or plasma) specimen PERFORMING LAB: [address] [id number] Result Comment: Final Result Date: April 19, 2025 12:10:00 AM UT (TECH: AfterYes) LOINC TEST FLAG RESULT REFERENCE RANGE UPDA WESLEY BY 5645-7 Ethanol [Mass/volume] in Urine H 129 mg/dL 0 mg/dL - 10 mg/dL April 19, 2025 12:10:00 AM UT (TECH: RJV) ORDER 1200: ALCOHOL QUANT (L OINC: 5645-7) ORDER DATE: April 19, 2025 2:16:00 AM UT Specimen Source: Serum/Plasm a Specimen Type: Acellular blo od (serum or plasma) specimen PERFORMING LAB: [address] [id number] Result Comment: Final Result Date: April 19, 2025 2:44:00 AM UT (TECH: RJV) LOINC TEST FLAG RESULT REFERENCE RANGE UPDA WESLEY BY 5645-7 Ethanol [Mass/volume ] in Urine H 70 mg/dL 0 mg/dL - 10 mg/dL April 19, 2025 2:44:00 AM UT (TECH: RJV) LABORATORY NARRATIVE RESULTS Information is not available RADIOLOGY RESULTS ORDER 100: CT BRAIN HEAD WO (LOINC: 81897-0) ORDER DATE: April 18, 2025 10:55:00 PM UT PERFORMING LAB: [address] [id number] Final Result Date: April 19 12:05:[address] [place] [address] Name: SANJAY LUBIN Exam Date: 04/18/2025 : 1940 Age 84 years Gender: M Physician: Facility: [facility] Facility HSV: Outpatient Exam: CT BRAIN HEAD WO FINAL REPORT TECHNIQUE: null CLINICAL HISTORY: Head Trauma with pain / fall struck right forehead above eye on ground / no loc / hx blood thinners / no intracranial hx COMPARISON: null FINDINGS: CT head without contrast Comparison: None Findings: No acute hemorrhage. No extra-axial fluid collection. No hydrocephalus, mass-effect or herniation. Peterson-white differentiation is maintained. There is patchy hypoattenuation of the periventricular and deep white matter, which is most likely the sequela of moderate chronic small vessel ischemic disease. No acute orbital pathology. Right frontal scalp hematoma measuring 3 mm in thickness. No fracture. The visualized paranasal sinuses are predominantly clear. The mastoid air cells are clear. IMPRESSION: Impression: No acute intracranial findings. Authenticated and [facility]AST[facility] Dictated By: Yohana Suarez Transcribed By: Transcribed On: 04/18/2025 8:05 PM Electronically signed by: Yohana Suarez 04/18/2025 Thank you for referring SANJAY LUBIN to [facility]. Legally authenticated by ST DANIAL Fried MD 2025-04-18 20:05:41 ORDER 200: CT CERVICL WO ( INC: 12514-4) ORDER DATE: April 18, 2025 10:55:00 PM [facility] PERFORMING LAB: [facility] [id number] Final Result Date: April 19 12:02:[address] [place] [address] Name: SANJAY LUBIN Exam Date: 04/18/2025 : 1940 Age 84 years Gender: M Physician: Facility: [facility] Facility HSV: Outpatient Exam: CT CERVICL WO FINAL REPORT TECHNIQUE: null CLINICAL HISTORY: Pain with Trauma/Injury / fall / fell off stairs going up to porch / right side pain / abnormality right side / hx fall x1 year never went to doctor hurt right side neck then COMPARISON: null FINDINGS: CT cervical spine without contrast Comparison: None Findings: Mild levocurvature. No listhesis. No fracture. Multilevel degenerative change is most prominent at C4/C5 with moderate to severe central spinal canal stenosis. No epidural hematoma. Normal thickness of the prevertebral soft tissues. Mild biapical scarring, rrfyt-ovrfdta-qecu-left with associated mild emphysema. IMPRESSION: Impression: No acute findings. Authenticated and [facility]ASTERN Dictated By: Yohana Suarez Transcribed By: Transcribed On: 04/18/2025 8:02 PM Electronically signed by: Yohana Suarez 04/18/2025 Thank you for referring SANJAY LUBIN to [facility]. Legally authenticated by ST DANIAL Fried MD 2025-04-18 20:02:55 ORDER 300: ELBOW 3V RT (LOIN C: 89498-7) ORDER DATE: April 18, 2025 10:55:00 PM UT PERFORMING LAB: [address] [id number] Final Result Date: April 18 11:54:[address] [place] [address] Name: SANJAY LUBIN Exam Date: 04/18/2025 : 1940 Age 84 years Gender: M Physician: Facility: [facility] Facility HSV: Outpatient Exam: ELBOW 3V RT FINAL REPORT TECHNIQUE: null CLINICAL HISTORY: Pain with Trauma/Injury / fall / posterior elbow skin tear / posterior elbow pain COMPARISON: null FINDINGS: Radiographs of the right elbow, 3 views Comparison: None Findings: No fracture or dislocation. Mild degenerative change. There is chondrocalcinosis seen adjacent to the radial head. There are enthesophytes of the medial and lateral epicondyles and at the olecranon. Bone mineralization is decreased. No joint effusion. Soft tissue swelling. IMPRESSION: Impression: No fracture. Authenticated and EASTERN Dictated By: Yohana Suarez Transcribed By: Transcribed On: 04/18/2025 7:54 PM Electronically signed by: Yohana Suarez 04/18/2025 Thank you for referring SANJAY LUBIN to [facility]. Legally authenticated by ST DANIAL Fried MD 2025-04-18 19:54:33 ORDER 400: HUMERUS 2V RT (LO INC: 41240-7) ORDER DATE: April 18, 2025 10:55:00 PM UT PERFORMING LAB: [address] [id number] Final Result Date: April 19 12:04:[address] [place] [address] Name: SANJAY LUBIN Exam Date: 04/18/2025 : 1940 Age 84 years Gender: M Physician: Facility: [facility] Facility HSV: Outpatient Exam: HUMERUS 2V RT FINAL REPORT TECHNIQUE: null CLINICAL HISTORY: Pain with Trauma/Injury / fall / right posterior skin tear pain COMPARISON: null FINDINGS: Radiographs of the right humerus, 2 views Comparison: None Findings: No fracture or dislocation. Mild degenerative change. Bone mineralization is decreased. Calcification adjacent to the humeral head measuring up to 3.2 cm. Soft tissue swelling. IMPRESSION: Impression: No fracture. Calcific tendinitis of the shoulder. Authenticated and EASTERN Dictated By: Yohana Suarez Transcribed By: Transcribed On: 04/18/2025 8:04 PM Electronically signed by: Yohana Suarez 04/18/2025 Thank you for referring SANJAY LUBIN to [facility]. Legally authenticated by ST DANIAL Fried MD 2025-04-18 20:04:06 PATHOLOGY NARRATIVE RESULTS Information is not available MICROBIOLOGY RESULTS No Micro Labs/Results Exist for Patient BLOOD ADMIN RESULTS Information is not available MEDICATIONS HOME MEDICATIONS Status RXNORM NDC Medication Dose Route Frequency Dates Comments Reported By Updated By Active 461401 26608 73215 4 budesonide (PULMICORT) 0.5 MG/2ML 0.5 MG INHALE D RTBID Last Dose: [id number] on April 18, 2025 11:11:10 PM [facility] Active FreeT extMe d buPROPion XL (WELLBUTRIN XL) 150.0 MG ORAL DAILY Last Dose: [id number] on April 18, 2025 11:11:10 PM [facility] Active 655666 85401 80104 5 dexAMETHason e Tablet 2 MG 1.0 TAB ORAL BID Last Dose: [id number] on April 18, 2025 11:11:10 PM [facility] Active 0831039 89634 28703 1 DUONEB 0.5-2.5 MG/3 ML 1.0 NEB INHALE D RTQ6H Last Dose: [id number] on April 18, 2025 11:11:10 PM [facility] Active 132608 15480 79537 1 Felodipine ER Tablet Extended Release 24 Hour 10 MG 1.0 TAB ORAL DAILY Last Dose: [id number] on April 18, 2025 11:11:10 PM [facility] Active 689743 45809 72948 1 ferrous sulfate 325.0 MG ORAL DAILY Last Dose: [id number] on April 18, 2025 11:11:10 PM [facility] Active FreeT extMe d FLUoxetine (PROZAC) 20.0 MG ORAL DAILY Last Dose: [id number] on April 18, 2025 11:11:10 PM [facility] Active 233776 84303 91716 7 Fluticasone- Salmeterol Inhalation Aerosol Powder Breath Activated 250-50 MCG/ACT 1.0 INH INHALE D BID Last Dose: [id number] on April 18, 2025 11:11:10 PM [facility] Active 714195 19060 33794 0 Gabapentin Capsule 300 MG 300.0 MG ORAL TID Last Dose: [id number] on April 18, 2025 11:11:11 PM [facility] Active FreeT extMe d furosemide (LASIX) 20.0 MG ORAL DAILY Last Dose: [id number] on April 18, 2025 11:11:11 PM [facility] Active 110158 67936 87476 0 Omeprazole Capsule Delayed Release 40 MG 1.0 CAP ORAL DAILY Last Dose: [id number] on April 18, 2025 11:11:11 PM [facility] Active 800485 25249 51815 5 Pravastatin Sodium Tablet 40 MG 1.0 TAB ORAL BEDTIME Last Dose: [id number] on April 18, 2025 11:11:11 PM [facility] Active 691111 93661 31166 0 Gabapentin Tablet 600 MG 600.0 MG ORAL TID Last Dose: [id number] on April 18, 2025 11:11:11 PM [facility] DISCHARGE MEDICATIONS Status RXNORM [facility] [place] Medication Dose Route Frequency Dates Comments Physician Updated By No Discharge Medication Info rmation Available INPATIENT MEDICATIONS Status RXNORM [facility] [place] Medication Dose Route Frequency Rat e Quantity Dates Comments Physician Updated By [facility] [id number] 2005 070 bacitracin 500 UNIT/GM OINT 1.0 SOPHIE ENTERA L ONE TIME ONLY Start: April 18, 2025 11:38: 00 PM [facility] End: April 18, 2025 11:38: 00 PM [facility] GREG Ann MD INTERFAC ED on April 18, 2025 11:38:00 PM UT Discont inued [id number] 4709 1040 020 TDaP (ADACEL) 5-2-15.5 LF-MCG/0.5 SUSP 0.5 ML INTRAM USCULA R ONE TIME ONLY Start: April 18, 2025 11:38: 00 PM UTC End: April 18, 2025 11:38: 00 PM UT GREG Ann MD INTERFAC ED on April 18, 2025 11:38:00 PM UT SOCIAL HISTORY SOCIAL HISTORY SNOMED-CT Social History Element Description Effective Dates Offered Cessation Comment UpdatedBy [id number] Current Tobacco smoking status Current Every Day Smoker [id number] on April 18, 2025 11:12:33 PM UT [id number] Historical Tobacco smoking status Former Smoker [id number] on April 03, 2025 1:10:09 AM UT SOCIAL HISTORY - Gender Sex: Male SOCIAL [...] for each vital sign as of April 21, 2025 10:44:52 AM [facility] Loinc Code Vital Sign Activity Date Result Updated By 8310-5 Body temperature April 18, 2025 10:59:36 PM UT 97.1 [degF] [id number] on April 20, 2025 3:08:38 AM [facility] 70407-4 Body weight Measured April 18 11:04:30 PM UTC 69.0 kg (152.0 lb) [id number] on April 18, 2025 11:04:30 PM UT 8462-4 Diastolic blood pressure April 19, 2025 3:05:36 AM UTC 78.0 mm[Hg] [id number] on April 20, 2025 3:08:40 AM UT 8867-4 Heart rate April 19, 2025 3:05:36 AM UT 68 /min [id number] on April 20, 2025 3:08:40 AM [facility] 13924-7 Oxygen saturation in Arterial blood by Pulse oximetry April 19, 2025 3:05:36 AM UTC 98.0 % [id number] on April 20, 2025 3:08:40 AM UT 9279-1 Respiratory rate April 19, 2025 3:05:36 AM UTC 15 /min [id number] on April 20, 2025 3:08:40 AM UT 8480-6 Systolic blood pressure April 19, 2025 3:05:36 AM UTC 134.0 mm[Hg] [id number] on April 20, 2025 3:08:40 AM UT PEDIATRIC GROWTH CHART - VITAL SIGNS [...] available. ENCOUNTERS ENCOUNTER INFORMATION Reason for Visit FALL INJURY Admission April 18, 2025 10:46:[address] [id number] Discharge April 19, 2025 3:08:00 AM UT DISC HARGED TO HOME OR SELF CARE ENCOUNTER DIAGNOSES Notes information is not kimberly ilable. Code System Diagnosis Onset Date Diagnosis information is not available. ABSTRACT DIAGNOSES Code System Diagnosis Updated By S51.011A ICD10 LACERATION WITHO UT FOREIGN BODY OF RIGHT ELBOW, INITIAL ENCOUNTER [id number] on April 21, 2025 10:44:18 AM UT S41.111A ICD10 LACERATION WITHO UT FOREIGN BODY OF RIGHT UPPER ARM, INITIAL ENCOUNTER [id number] on April 21, 2025 10:44:18 AM UT M25.521 ICD10 PAIN IN RIGHT ELBOW [id number] on April 21, 2025 10:44:18 AM UT S51.011A ICD10 LACERATION WITHO UT FOREIGN BODY OF RIGHT ELBOW, INITIAL ENCOUNTER [id number] on April 21, 2025 10:44:18 AM UT S00.03XA ICD10 CONTUSION OF SCALP, INITIAL ENCOUNTER [id number] on April 21, 2025 10:44:18 AM UT F10.90 ICD10 ALCOHOL USE, UNS PECIFIED, UNCOMPLICATED [id number] on April 21, 2025 10:44:18 AM UT I12.9 ICD10 HYPERTENSIVE CHR ONIC KIDNEY DISEASE WITH STAGE 1 THROUGH STAGE 4 CHRONIC KIDNEY DISEASE, OR UNSPECIFIED CHRONIC KIDNEY DISEASE [id number] on April 21, 2025 10:44:18 AM [facility] N18.9 ICD10 CHRONIC KIDNEY DISEASE, UNSP ECIFIED [id number] on April 21, 2025 10:44:18 AM [facility] M19.90 ICD10 UNSPECIFIED OSTE OARTHRITIS, UNSPECIFIED SITE [id number] on April 21, 2025 10:44:18 AM [facility] K21.9 ICD10 GASTRO-ESOPHAGEA L REFLUX DISEASE WITHOUT ESOPHAGITIS [id number] on April 21, 2025 10:44:18 AM [facility] J44.9 ICD10 CHRONIC OBSTRUCT SHILOH PULMONARY DISEASE, UNSPECIFIED [id number] on April 21, 2025 10:44:18 AM [facility] Z88.6 ICD10 ALLERGY STATUS TO ANALGESIC AGENT [id number] on April 21, 2025 10:44:18 AM [facility] Z72.0 ICD10 TOBACCO USE [id number] on April 21, 2025 10:44:18 AM [facility] Z79.51 ICD10 HALF-WAY (CURRE NT) USE OF INHALED STEROIDS [id number] on April 21, 2025 10:44:18 AM [facility] Z79.899 ICD10 OTHER RECONCILIATION MANAGER (CURRENT) DR DANNY THERAPY [id number] on April 21, 2025 10:44:18 AM [facility] Y90.6 ICD10 BLOOD ALCOHOL LE SULLY OF 120-199 MG/100 ML [id number] on April 21, 2025 10:44:18 AM [facility] W19.XXXA ICD10 UNSPECIFIED FALL, INITIAL EN COUNTER [id number] on April 21, 2025 10:44:18 AM [facility] Y92.009 ICD[address] UNS[address]AC E IN UNSPECIFIED NON-INSTITUTIONAL (PRIVATE) RESIDENCE THE PLACE OF OCCURRENCE OF THE EXTERNAL CAUSE [id number] on April 21, 2025 10:44:18 AM [facility] CARE TEAM Care Electric M[employer]ester Shop Role BEN GARZA Primary Attending BEN GARZA Referring TOO CHILD Primary Care BEN GARZA Admitting CARE TEAM CARE vet tech Role on Team Status Start Date End Date Update d By GREG Ann MD [facility] Referring normal April 18, 2025 11:50:09 PM [facility] April 18, 2025 11:50:09 PM UTC [id number] on April 18, 2025 11:50:09 PM UTC GREG Ann MD Referring normal April 18, 2025 11:50:09 PM UTC April 19, 2025 3:08:00 AM UTC [id number] on April 18, 2025 11:50:09 PM UTC GREG Ann MD PHY Attending normal April 18, 2025 11:50:09 PM UTC April 18, 2025 11:50:09 PM UTC [id number] on April 18, 2025 11:50:09 PM UTC GREG Ann MD Attending normal April 18, 2025 11:50:09 PM UTC April 19, 2025 3:08:00 AM UTC [id number] on April 18, 2025 11:50:09 PM UTC GREG Ann MD PHY Admitting normal April 18, 2025 11:50:09 PM UTC April 18, 2025 11:50:09 PM UTC [id number] on April 18, 2025 11:50:09 PM UTC GREG Ann MD Admitting normal April 18, 2025 11:50:09 PM UTC April 19, 2025 3:08:00 AM UTC [id number] on April 18, 2025 11:50:09 PM UTC MATEUSZ KIM PCP normal April 18, 2025 10:47:00 PM UTC April 19, 2025 3:08:00 AM UTC [id number] on April 18, 2025 11:50:09 PM UTC
[2025-05-16 15:08] VITALS: BP 123/74; PULSE 82; RESP 18; TEMP 37.1; O2SAT 97; BMI 23.6
--- NOTE | 2025-05-16 15:08 | CT_ITS ---
PROCEDURE INFORMATION: Exam: CT Cervical Spine Without Contrast Exam date and time: 05/16/2025 3:39 PM Age: 84 years old Clinical indication: Injury or trauma; Fall; Other: Pain; Additional info: Fall, extension injury TECHNIQUE: Imaging protocol: Computed tomography of the cervical spine without contrast. Radiation optimization: All CT scans at this facility use at least one of these dose optimization techniques: automated exposure control; mA and/or kV adjustment per patient size (includes targeted exams where dose is matched to clinical indication); or iterative reconstruction. COMPARISON: CT HEAD/BRAIN WO CON 05/16/2025 3:38 PM FINDINGS: Bones: No acute fracture of the cervical spine. No subluxation or dislocation of the cervical spine. Intervertebral disc space narrowing C5/C6 may represent degenerative disc disease.. Anterior osteophyte formation C3 through C7. Posterior osteophyte formation C5 through C7. Degenerative changes in the facets at multiple levels. Degenerative changes at C1/C2 Lungs: Mild opacities in the apices may reflect chronic lung changes Thyroid: The thyroid is atrophic Soft tissues: Unremarkable. IMPRESSION: 1. No acute fracture of the cervical spine. 2. No subluxation or dislocation of the cervical spine. 3. Intervertebral disc space narrowing C5/C6 may represent degenerative disc disease..
--- NOTE | 2025-05-16 15:08 | CT_ITS ---
PROCEDURE INFORMATION: Exam: CT Head Without Contrast Exam date and time: 05/16/2025 3:38 PM Age: 84 years old Clinical indication: Injury or trauma; Fall; Other: Pain; Additional info: Fall, head trauma TECHNIQUE: Imaging protocol: Computed tomography of the head without contrast. Radiation optimization: All CT scans at this facility use at least one of these dose optimization techniques: automated exposure control; mA and/or kV adjustment per patient size (includes targeted exams where dose is matched to clinical indication); or iterative reconstruction. COMPARISON: CT HEAD/BRAIN WO CON 05/16/2025 3:38 PM FINDINGS: Brain: No acute intracranial hemorrhage.. There is moderate diffuse heterogeneity of the white matter attenuation, consistent with chronic white matter ischemic changes. Moderate cerebral atrophy Cerebral ventricles: No ventriculomegaly. Paranasal sinuses: There is nonspecific fluid within the ethmoid sinuses. Mastoid air cells: Visualized mastoid air cells are well aerated. Bones: Unremarkable. No acute fracture. Soft tissues: Unremarkable. IMPRESSION: No acute intracranial hemorrhage..
--- OUTSIDE RECORDS SUMMARY | 2025-05-16 15:18 | XMS_ITS ---
Author Organization Unknown [facility] Start Date Provider Encounter for Check-up [id number] Odessa Patel
--- NOTE | 2025-05-16 15:19 | ED_ITS ---
Discharge Plan Disposition Patient Disposition: Home, Self-Care Referrals Follow up/Referrals: Provider,Referral, MD [Primary Care Provider, Medical] - See instructions Activity Restrictions/Add. Instructions Additional Instructions/Restrictions: Call your family doctor to establish care for this visit to the emergency department and schedule follow-up within 48 hours to ensure improvement. If you have any worsening of your condition or any other concerning signs or symptoms, return to the emergency department or your primary care doctor for further evaluation. Be sure to stay plenty hydrated Clinical Impressions Clinical Impression: Fall Print Language Print Language: Namibian Discharge ED Provider: Jere Joseph General Adult HPI General Chief complaint: Fall Stated complaint: Fall Time Seen by Provider: 05/16/25 15:10 Mode of Arrival: EMS Source of Information: Patient Description of Symptoms (Recalled from ER Triage Doc. by RN): Patient states that he was getting out of his car and his legs just gave out earlier this afternoon. Patient states that he hit his head on the ground, patient with abrasion to forehead, abrasion to abdomen and skin tear to left forearm. Patient admits to drinking several beers this afternoon. Patient complaining of pain in head. History of Present Illness HPI narrative: Please note that above description of symptoms, in this electronic medical record under categorization of recalled from ER triage doctor by RN are reflective of an initial nursing assessment, however, is not reflective of my full history and physical exam that was personally taken and clarified. Consequentially, this preceding description of symptoms, which may include the patient's categorized chief complaint in the EMR, do not reflect my personal clinical impression, and the ultimate description of history of present illness and patient stated complaints should be deferred to this section of the note. Unless stated otherwise or congruent with this section of the note, additional signs, symptoms, or incongruence should be interpreted as inaccurate with my clinical impression. Related Data Allergies Allergy/AdvReac Type Severity Reaction Status Date / Time No Known Allergies Allergy Verified 05/16/25 15:14 [facility] Disclaimer: The information contained in this section may have been updated after the patient was seen, as this information can be updated by other users. Social History Smoking Status: Current every day smoker alcohol intake: former current occupational status: retired Travel in the last 8 weeks?: None ROS Obtained: Yes All systems reviewed & no additional complaints except as documented Physical Exam General General appearance: alert Head Head exam: normocephalic and other (Superficial laceration right frontal scalp. Hemostatic) Eye Eye exam: Present normal appearance, PERRL and EOMI ENT ENT exam: Present mucous membranes dry Neck Neck exam: Present normal inspection, full ROM and trachea midline; Absent tenderness Respiratory Respiratory exam: Absent respiratory distress, wheezes, stridor, accessory muscle use or prolonged expiratory phase Cardiovascular Cardiovascular exam: Present regular rate, normal rhythm and other (Pulses equal symmetric in upper and lower extremities) Abdominal Exam Abdominal exam: Present soft; Absent distention, tenderness or pulsatile mass Extremities Exam Extremities exam: Absent edema Neurological Exam Neurological exam: Present alert and CN II-XII intact; Absent motor sensory deficit Skin Skin exam: Present warm and dry; Absent diaphoresis or erythema Medical Decision Making Medical Records Medical records reviewed: Yes I reviewed the patient's medical records. Screening: Per USPSTF and CDC recommendations, given the prevalence of disease in our region, it is our hospital?s policy to screen for HIV and viral Hepatitis for all patients aged 18 and over and those with ongoing risk factors. Hao Inquiry Pt receiving controlled substance: No Hao was queried for this patient: No Vital Signs: 05/16/25 15:08 05/16/25 16:00 05/16/25 16:30 Temperature 98.7 F Temperature Source Oral Pulse Rate 74 82 Pulse Rate [Right Radial] 82 Respiratory Rate 18 16 20 Blood Pressure 122/58 L 119/59 L Blood Pressure [Right Arm] 123/74 Blood Pressure Mean 78 82 Blood Pressure Mean [Right Arm] 90 Blood Pressure Source [Right Arm] Automatic Cuff Blood Pressure Position [Right Arm] Sitting 02 Sat by Pulse Oximetry 97 95 96 Oxygen Delivery Method Room Air 05/16/25 17:00 Temperature Temperature Source Pulse Rate 84 Pulse Rate [Right Radial] Respiratory Rate 21 Blood Pressure 103/61 L Blood Pressure [Right Arm] Blood Pressure Mean Blood Pressure Mean [Right Arm] Blood Pressure Source [Right Arm] Blood Pressure Position [Right Arm] 02 Sat by Pulse Oximetry 96 Oxygen Delivery Method Room Air Lab Data Lab Results 05/16/25 15:13: WBC 6.2, RBC 3.24 L, Hgb 10.5 L, Hct 31.2 L, MCV 96.3 H, MCH 32.4 H, MCHC 33.7, RDW 13.3, Plt Count 331, MPV 10.1, Neut % (Auto) 72.0, Lymph % (Auto) 13.5, Burt % (Auto) 11.3 H, Eos % (Auto) 2.1, Baso % (Auto) 0.8, Neut # (Auto) 4.5, Lymph # (Auto) 0.8, Burt # (Auto) 0.7, Eos # (Auto) 0.1, Baso # (Auto) 0.1, PT 10.3, INR 0.92, APTT 30.6, Sodium 134 L, Potassium 4.7, Chloride 100, Carbon Dioxide 18 L, Anion Gap 20.7 H, BUN 16, Creatinine 1.10, Estimated Creat Clear 50, Estimated GFR 64, Est GFR ( Amer) 77, Glucose 100, Calcium 9.1, Total Bilirubin 0.6, AST 40, ALT 13, Alkaline Phosphatase 112, T otal Creatine Kinase 46 L, Troponin I < 0.01, Total Protein 7.8, Albumin 3.8, G lobulin 4.0 H, Albumin/Globulin Ratio 1.0 L 05/16/25 15:13 05/16/25 15:13 Orders (Tests/Meds): ED MEDICATIONS Discontinued Medications Generic Name Dose Route Start Last Admin Trade Name Freq PRN Reason Stop Dose Admin Acetaminophen 1,000 mg 05/16/25 15:07 05/16/25 15:44 Acetaminophen 1,000mg/100ml Vial IV 05/16/25 15:08 1,000 mg ONCE ONE Administration Sodium Chloride 1,000 mls @ 999 mls/hr 05/16/25 15:07 05/16/25 15:44 Sod Chlor 0.9% 1000ml Bag IV 05/16/25 16:07 999 mls/hr .Q1H1M ONE Administration Ketorolac Tromethamine 15 mg 05/16/25 15:07 05/16/25 15:44 Ketorolac 30mg/Ml Vial IV 05/16/25 15:08 15 mg ONCE ONE Administration ORDERS Category Date Time Status CT cervical spine wo con Stat Cat Scan 05/16/25 15:[address] head/brain wo con Stat Cat Scan 05/16/25 15:08 Completed CK [Creatine Kinase] Stat Lab 05/16/25 15:13 Completed Complete Blood Count Auto Diff Stat Lab 05/16/25 15:13 Completed Comprehensive Metabolic Panel Stat Lab 05/16/25 15:13 Completed PT INR [Prothrombin Time INR] Stat Lab 05/16/25 15:13 Completed PTT [Activated Partial Thrombo Time] Stat Lab 05/16/25 15:13 Completed Troponin I Q3H Lab 05/16/25 18:15 Ordered Troponin I Q3H Lab 05/16/25 21:15 Ordered Troponin I Stat Lab 05/16/25 15:13 Completed ECG Data Tracing #1: I reviewed this ECG and interpreted as documented below: (Sinus rhythm 69 bpm with DC 260, QRS 98, QTc 437. First-degree AV block with no ischemic change) Medical Decision Narrative: 84-year-old male history of COPD, hyperlipidemia, hypertension, stroke with no residual deficits, [place] status post stenting, CHF, type 2 diabetes presenting with fall. Patient states he has been feeling weak recently. Stepped out of his car and his legs felt weak, so he fell down onto the ground. Hit his head, did not lose consciousness. Family called EMS because they were unable to help him get up. Brought to the emergency department for further evaluation. Patient does not remember any of the medications that he is on, family does not either. Patient states that he has most of his [facility], but has no records with this hospital. History was obtained via conversation with patient and EMS. On arrival, patient hemodynamically stable, alert, oriented to person, time, situation appropriate, GCS 15, moving all extremities spontaneously, pupils equal and reactive to light. Full physical exam performed and significant for chronically ill-appearing male who is in no acute distress. Mild dysarthria, but baseline for patient. Denying any current neurologic deficits. States that he has pain in the front of his forehead where he has a superficial laceration that is hemostatic. Lungs are clear. Mentating appropriately. No midline neck or back tenderness. He does have superficial skin tear on the left upper extremity just distal to the elbow that is clean. Dressing in place. Differential includes intracranial hemorrhage, cervical spine injury, metabolic abnormality, endocrinologic abnormality, ACS, [place], among others. Patient placed on continuous cardiac monitoring and continuous pulse ox with initial blood pressure 123/74, heart rate 82, saturation 97% on room air. Patient was given IV fluids for symptomatic management and correction of underlying abnormalities. Workup independently interpreted and significant for nonactionable hematologic workup. No intracranial hemorrhage, no cervical spine injury. On reevaluation, patient resting comfortably. Given patient presentation, workup, history, this most likely represents a fall, uncomplicated. Because patient at baseline without signs or symptoms of clinical decompensation, deemed appropriate for discharge. Results were relayed to patient who voiced understanding and were agreeable to outpatient management and follow up. I discussed my clinical impression with patient and answered all questions. At this time, the evidence for any other entities in the differential is insufficient to warrant any further testing or ED observation. This was explained as well. Advisory was given that persistent or worsening symptoms require further evaluation. I confirmed the understanding of this discussion. Customer Pricing Manager disclaimer Much of this encounter note is an electronic behavior analyst spoken language to printed text. Electronic behavior analyst of the spoken language may permit errors. Although I have reviewed the note, some errors may still exist. Critical Care Critical Care Time Critical Care Time: No
--- OUTSIDE RECORDS SUMMARY | 2025-05-16 15:19 | XMS_ITS | Clinical Summary ---
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 Do not crush, chew, or split. Active felodipine ER (Plendil) 10 MG 24 hr tablet Take 1 tablet (10 mg) by mouth 1 (one) time each day. Do not crush, chew, or split. Active aspirin 81 MG EC tablet Take 1 tablet (81 mg) by mouth 1 (one) time each day. Active cyanocobalamin (Vitamin B-12) 1000 MCG/ML injection Inject 1 mL (1,000 mcg) into the muscle every 30 (thirty) days. Active ferrous sulfate 325 (65 Fe) MG tablet Take 1 tablet (325 mg) by mouth 1 (one) time each day. Active FLUoxetine (PROzac) 20 MG capsule Take 1 capsule (20 mg) by mouth 1 (one) time each day. Active fluticasone-scotty meterol (Advair Diskus) 250-50 MCG/ACT diskus inhaler Inhale 1 puff 2 (two) times a day. Rinse mouth with water after use to reduce aftertaste and incidence of candidiasis. Do not swallow. Active omeprazole (PriLOSEC) [address] capsule Take 1 capsule (40 mg) by mouth 1 (one) time each day. Do not crush or chew. Active pravastatin (Pravachol) 40 MG tablet Take 1 tablet (40 mg) by mouth every night. Active gabapentin (Neurontin) 300 MG capsule Take 1 capsule (300 mg) by mouth 3 (three) times a day. Active Active Problems Problem Noted Date Diagnosed Date At high risk for falls 08/08/2024 Resolved Problems Problem Noted Date Diagnosed Date Resolved Date Fall, initial encounter 07/25/2024 090 06/2024 Immunizations Immunization Administration Dates Next Due Tdap 07/25/2024 Family History Medical History Relation Name Comments Cardiac disorder Brother Cardiac disorder Mother Stroke Mother Relation Name Status Comments Brother Mother Social History Tobacco Use Types Packs/Day Years Used Date Smoking Tobacco: Former Smokeless Tobacco: Never Tobacco Cessation:Counseling Given: Not Answered Alcohol Use Standard Drinks/Week Comments Yes 0 (1 standard drink = 0.6 oz pure alcohol) Alcoholic Drinks/day: Rarely consumes alcohol CAGE ASSESSMENT Answer Date Recorded Due to the following: Medical status 07/25/2024 Maximum number of drinks you had on a given occasion in the last month? 5 or more drinks 07/25/2024 How many alcoholic Beverages do you typically drink in a week? 8 - 14 per week 07/25/2024 Have you ever felt you shoul d CUT down on your drinking? 0 07/25/2024 Have you been ANNOYED by peo ple criticizing your drinking? 0 07/25/2024 Have you felt GUILTY about your drinking? 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 0 07/25/2024 CAGE Questionnaire Score 0 024 Sex and Gender Information Value Date Recorded Sex Assigned at Not on file Legal Sex Male 7:44 PM EDT Gender Identity Not on file Sexual Orientation Not on file Last Filed Vital Signs Vital Sign Reading Time Taken Comments Blood Pressure 149/79 07/27/2024 11:53 AM EDT Pulse 83 07/27/2024 11:53 AM EDT Temperature 36.6 C (97.8 F) 07/27/2024 11:53 AM EDT Respiratory Rate 17 07/25/2024 7:17 PM EDT Oxygen Saturation 97% 07/27/2024 11: 53 AM EDT Inhaled Oxygen Concentration - - Weight 76.1 kg (167 lb 12.3 oz) 024 10:41 PM EDT Height 179.8 cm (5' 10.79 ) 07/25/2024 10:41 PM EDT Body Mass Index 23.54 07/25/2024 10:41 PM EDT Plan of Treatment Health Maintenance Due Date Last Done Comments [facility]-Depression Screening 1940 [facility]-Medicare Annual Wellness (AWV) 1940 [facility]-Infant/Child/Adol SDOH Screenings 1940 [facility]- SDOH Screenings 1957 [facility]-Adult SDOH Screenings 1957 [facility]-Pneumococcal Vaccine: 50+ Years (1 of 2 - PCV) 1958 [facility]-Zoster Vaccines (1 of 2) 1989 [facility]-RSV Vaccine: 60+ Years or (1 - 1-dose 75+ series) 2014 [id number] Vaccine ( - season) 2024 09/30/2021, 05/27/2021, 05/06/2021 [facility]-Influenza Vaccine (Season Ended) 2025 09/30/2021, 07/23/2020 [facility]-DTaP,Tdap,and Td Vaccines (2 - Td or Tdap) 07/25/2034 07/25/2024 HPV Vaccines Aged Out No longer eligi ble based on patient's age to complete this topic [facility]-HIB Vaccines Aged Out No longer e ligible based on patient's age to complete this topic [facility]-Hepatitis A Vaccines Aged Out No longer eligible based on patient's age to complete this topic [facility]-IPV Vaccines Aged Out No longer e ligible based on patient's age to complete this topic [facility]-Rotavirus Vaccines Aged Out No lo nger eligible based on patient's age to complete this topic Insurance [facility] MEDICARE Advance Directives * Full Code (Latest Code Status on File) Date Activated Date Inactivated Comments 07/25/2024 8:15 AM 07/27/2024 4:44 PM Patient confus e time but he says he wants everything to save his life. Question Answer Comments Patient has decision-making capacity? Yes Care Teams Binding Machine Operator Relationship Specialty Start Date End Date Pcp, No [address] [place] [address] PCP - General Family Medicine 07/25/24
[2025-05-16 15:23] LABS: Basophils # 0.1 K/mm3 (0-0.2); Basophils % 0.8 % (0.1-2.0); Eosinophils # 0.1 Kmm3 (0.0-0.4); Eosinophils % 2.1 % (0.1-12.0); Hematocrit 31.2 % (42.0-52.0); Hemoglobin 10.5 g/dL (14.1-18.0); Immature Granulocytes # 0.02 10^3uL; Immature Granulocytes % 0.3 %; Lymphocytes # 0.8 K/mm3 (0.7-4.5); Lymphocytes % 13.5 % (10-50); Mean Corpuscular HGB Conc 33.7 g/dL (31.8-35.4); Mean Corpuscular Hemoglobin 32.4 pg (27.0-31.2); Mean Corpuscular Volume 96.3 fl (80-94); Mean Platelet Volume 10.1 fl (7.4-10.4); Monocytes # 0.7 K/mm3 (0.1-1.0); Monocytes % 11.3 % (1.7-9.3); Neutrophils # 4.5 K/mm3 (1.8-7.8); Nucleated Red Blood Cells # 0 10^3/uL; Nucleated Red Blood Cells % 0 %; Platelet Count 331 K/mm3 (142-424); Red Blood Count 3.24 M/mm3 (4.60-6.20); Red Cell Distribution Width 13.3 % (11.5-17.5); Red Cell Distribution Width-SD 47.7 fL; White Blood Count 6.2 K/mm3 (4.8-10.8)
--- NOTE | 2025-05-16 15:33 | PC.NURSE ---
pt going for CT at this time via bed with oncology technician
[2025-05-16 15:42] LABS: Alanine Aminotransferase 13 U/L (12-78); Albumin Level 3.8 g/dl (3.5-5.0); Alkaline Phosphatase 112 U/L (38-126); Anion Gap 20.7 mEq/L (5-15); Aspartate Amino Transferase 40 U/L (17-59); Bilirubin,Total 0.6 mg/dl (0.2-1.3); Blood Urea Nitrogen 16 mg/dl (9-20); Calcium 9.1 mg/dl (8.4-10.2); Carbon Dioxide 18 mmol/L (22.0-30.0); Chloride 100 mmol/L (98-107); Creatine Kinase 46 U/L (55-170); Creatinine Clearance Estimated 50 mL/min (50-200); Estimated Glomerular Filt Rate 64 ml/min (>60); GFR (African American) 77 ML/MIN (>60); Glucose 100 mg/dl (74-100); Potassium 4.7 mmoL/L (3.5-5.1); Sodium 134 mmol/L (136-145); Total Protein,Serum 7.8 g/dl (6.3-8.2)
[2025-05-16] MEDS: ACETAMINOPHEN 1,000MG/100ML VIAL 1000 MG IV (15:44)
[2025-05-16] MEDS: KETOROLAC 30MG/ML VIAL 15 MG IV (15:44)
[2025-05-16] MEDS: 0.9 % SODIUM CHLORIDE 1000ML 1,000 ML 999 ML IV (15:44)
[2025-05-16 15:55] LABS: Troponin I < 0.01 ng/ml (0.00-0.034)
[2025-05-16 15:56] LABS: Activated Partial Thrombo Time 30.6 seconds (22.8-30.6); INR 0.92 (0.9-1.1); Prothrombin Time 10.3 seconds (10.1-12.5)
--- NOTE | 2025-05-16 15:58 | ECG_ITS ---
APPROVED REPORT Exam: Resting ECG HR:69 bpm ECG Measurements Heart Rate 69 AXES IN 260 P 79 QRSd 98 QRS 5 QT 419 T 75 QTc 437 Conclusion Sinus rhythm First-degree AV block Electronically signed by : ROSEMARY ALLEN, 05/16/2025 22:38:16
[2025-05-16 16:00] VITALS: BP 122/58; PULSE 74; RESP 16; O2SAT 95
[2025-05-16 16:30] VITALS: BP 119/59; PULSE 82; RESP 20; O2SAT 96
[2025-05-16 17:00] VITALS: BP 103/61; PULSE 84; RESP 21; O2SAT 96
[2025-05-16 17:30] VITALS: BP 121/64; RESP 20
--- NOTE | 2025-05-16 17:49 | PC.NURSE ---
Spoke with customs house broker regarding patient not having a ride home. She states that she will work on finding some kind of transportation for patient.
[2025-05-16 18:33] VITALS: BP 140/79; PULSE 80; RESP 20; TEMP 36.6; O2SAT 95
== END 2025-05-16 18:35 | disposition home or self-care (01) ==
PROVIDERS: Emergency Provider Emergency Medicine
DX: S51.802A Unspecified open wound of left forearm, initial encounter (principal); S00.81XA Abrasion of other part of head, initial encounter; S30.811A Abrasion of abdominal wall, initial encounter; F17.210 Nicotine dependence, cigarettes, uncomplicated; I44.0 Atrioventricular block, first degree; I11.0 Hypertensive heart disease with heart failure; I50.9 Heart failure, unspecified; W19.XXXA Unspecified fall, initial encounter
CPT/HCPCS: 70450; 72125; 80053; 82550; 84484; 85025; 85610; 85730; 93005; 96361; 96374; 96375; 99285; J0131; J1885; J7030